=== PATIENT | female | born 1985 | race Two or more races ===

== ENCOUNTER 2021-10-05 20:45 | Emergency (ER) | payer MEDICAID, OTHER ==
[~2021-10-05] VITALS: Ht 149.9 cm; Wt 67.6 kg
[2021-10-05 22:31] LABS: Albumin 3.6 g/dL (3.4-5.0); BUN/Creatinine Ratio 17.9; Potassium 3.2 mmol/L (3.5-5.1)
[2021-10-05 22:35] LABS: Bilirubin, Total 0.4 mg/dL (0.2-1.0); Total Protein 8.9 g/dL (6.4-8.2)
[2021-10-05 22:46] LABS: Basophils # (auto) 0.2 10 ^3/uL (0-0.2); Basophils % (auto) 1.9 % (0.0-2.0); Eosinophils # (auto) 0 10 ^3/uL (0-0.8); Eosinophils % (auto) 0.3 % (0.0-7.0); Hematocrit 27.2 % (36.0-46.0); Hemoglobin 8.1 g/dL (12.2-16.2); Lymphocytes # (auto) 1.7 10 ^3/uL (0.4-5.4); Lymphocytes % (auto) 20.8 % (10.0-50.0); Mean Corpuscular Hemoglobin 17.3 pg (28.0-32.0); Mean Corpuscular Hgb Conc. 29.7 g/dL (32.0-36.0); Mean Corpuscular Volume 58.2 fL (80.0-100.0); Monocytes # (auto) 1.1 10 ^3/uL (0-1.3); Monocytes % (auto) 13.1 % (0.0-12.0); Neutrophils # (auto) 5.3 10 ^3/uL (1.6-8.6); Neutrophils % (auto) 63.9 % (37.0-80.0); Nucleated Red Blood Cells % 0.1 %; Red Blood Cells 4.67 10^6/uL (4.0-5.20); Red Cell Distribution Width 18.3 % (11.8-14.3); White Blood Cell 8.3 10^3/uL (4.4-10.8)
[2021-10-05] MEDS ORDERED: ONDA-144 PO (23:04)
[2021-10-05 23:30] VITALS: BP 115/73
== END 2021-10-06 00:15 | disposition home or self-care (01) ==
LOC: ER 20:45
DX: A08.4 Viral intestinal infection, unspecified (principal)
CPT/HCPCS: 36415; 80053; 85025

== ENCOUNTER 2022-04-09 02:18 | Emergency (ER) | payer MEDICAID ==
[~2022-04-09] VITALS: Ht 149.9 cm; Wt 73.0 kg
[~2022-04-09 02:18] MED LIST: ONDA-144 PO
[2022-04-09 05:59] VITALS: BP 116/67
== END 2022-04-09 07:05 | disposition left against medical advice (07) ==
LOC: ER 02:20
DX: J02.9 Acute pharyngitis, unspecified (principal); Z53.21 Procedure and treatment not carried out due to patient leaving prior to being seen by health care provider
CPT/HCPCS: 71045

== ENCOUNTER 2024-05-13 22:11 | Inpatient (IN) | payer MEDICAID ==
[~2024-05-13] VITALS: Ht 149.9 cm; Wt 68.6 kg
[2024-05-13] MEDS: ONDANSETRON HCL 4 MG/2 ML VIAL IV ONE (22:30)
[2024-05-13] MEDS: MORPHINE SULFATE 4 MG/ML SYR/VIAL IV ONE (22:30)
--- NOTE | 2024-05-13 22:33 | ED.PDOC ---
GI ASSESSMENT HPI Comments 39-year-old female who came to ER for abdominal pain. Patient denies any medical problems. Denies any history of abdominal surgeries. States for the past few hours she has been having constant epigastric abdominal pain, associated with nausea, and 3 episodes of vomiting. Patient also has loss of appetite. Patient appears very pale and weak at this time. Patient states she is currently on her menstrual period x 4 days Chief Complaint: Abdominal Pain Time Seen by MD: 22:33 Reviewed Notes: Nurses Notes Allergies: Coded Allergies: NO KNOWN ALLERGIES (Unverified , 05/13/24) Home Meds Active Scripts Ondansetron (Zofran) 4 Mg Tab, 4 MG PO Q8HP PRN, #15 MG Prov:MARTI SAUCEDA MD 10/05/21 Information Source: Patient Mode of Arrival: Ambulatory Timing: Hours Duration: Since onset Prehospital treatment: None Quality: Cramping, Sharp Vomitus: Watery Stool: Normal Severity: Moderate Recent: None Recent Hx of: None Pain Location: Epigastric Modifying Factors: Nothing Associated sign and symptoms: Nausea, Vomiting, Abdominal Pain, Anorexia Past Medical History PAST MEDICAL HISTORY: Denies Surgical History: Denies all surgeries 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 History: Uterine Fibroids Family History Family History: Reviewed,noncontributory to illness Social History Smoker: Non-Smoker Alcohol: Denies ETOH Use Drugs: Denies Drug Use Lives In: Home Constitutional: denies: chills, diaphoresis, fatigue, fever, malaise, sweats, weakness, others EENTM: denies: blurred vision, double vision, ear bleeding, ear discharge, ear drainage, ear pain, ear ringing, eye pain, eye redness, hearing loss, mouth pain, mouth swelling, nasal discharge, nose bleeding, nose congestion, nose pain, photophobia, tearing, throat pain, throat swelling, voice changes, others Respiratory: denies: cough, hemoptysis, orthopnea, SOB at rest, shortness of breath, SOB with excertion, stridor, wheezing, others Cardiovascular: denies: chest pain, dizzy spells, diaphoresis, Dyspnea on exertion, edema, irregular heart beat, left arm pain, lightheadedness, palpitations, PND, syncope, others Gastrointestinal: reports: abdominal pain, nausea, poor appetite, vomiting; denies: abdomen distended, blood streaked bowels, constipated, diarrhea, dysphagia, difficulty swallowing, hematemesis, melena, poor fluid intake, rectal bleeding, rectal pain, others Genitourinary: denies: abnormal vagina bleeding, burning, dyspareunia, dysuria, flank pain, frequency, hematuria, incontinence, pain, , vagina discharge, urgency, others Neurological: denies: dizziness, fainting, headache, left sided numbness, left sided weakness, numbness, paresthesia, pre-existing deficit, right sided numbness, right sided weakness, seizure, speech problems, tingling, tremors, weakness, others Musculoskeletal: denies: back pain, gout, joint pain, joint swelling, muscle pain, muscle stiffness, neck pain, others Integumetry: denies: bruises, change in color, change in hair/nails, dryness, laceration, lesions, lumps, rash, wounds, others Allergic/Immunocompromised: denies: Difficulty Healing, Frequent Infections, Hives, Itching, others Hematologic/Lymphatic: denies: anemia, blood clots, easy bleeding, easy bruising, swollen glands, others Endocrine: denies: excessive hunger, excessive sweating, excessive thirst, excessive urination, flushing, intolerance to cold, intolerance to heat, unexplained weight gain, unexplained weight loss, others Psychiatric: denies: anxiety, bipolar disorder, depression, hopeless, panic disorder, schizophrenia, sleepless, suicidal, others Physical Exam General Appearance: No Apparent Distress, Normal HEENT: Normal ENT Inspection, Pharynx Normal, TMs Normal Neck: Full Range of Motion, Non-Tender, Normal, Normal Inspection Respiratory: Chest Non-Tender, Lungs Clear, No Accessory Muscle Use, No Respiratory Distress, Normal Breath Sounds Cardiovascular: No Edema, No JVD, No Murmur, No Gallop, Normal Peripheral Pulses, Regular Rate/Rhythm Breast Exam: Deferred Gastrointestinal: Epigastric, No Organomegaly, No Pulsatile Mass, Normal Bowel Sounds, Soft, Tenderness Genitalia: Deferred Pelvic: Deferred Rectal: Deferred Extremities: No calf tenderness, Normal capillary refill, Normal inspection, Normal range of motion, Non-tender, No pedal edema Musculoskeletal : Apperance: Normal Neurologic: Alert, 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 Was a procedure done?: No GI differential Dx Differential Diagnosis: Cholecystitis, Diverticular disease, Gastritis/PUD, Gastroenteritis, Pancreatitis, UTI, Urolithiasis, Dehydration X-Ray, Labs, Meds, VS Vital Signs Date Time Temp Pulse Resp B/P (MAP) Pulse Ox O2 Delivery O2 Flow Rate FiO2 05/13/24 23:15 98.8 120 18 92/52 (65) 96 98.8 05/13/24 23:15 120 18 97 Nasal Cannula* 2 28 05/13/24 22:17 98.8 114 16 105/53 (70) 100 Lab Test 05/13/24 23:19 05/13/24 22:35 Range/Units Lactic Acid Level 3.0 *H 0.4-2.0 mmol/L White Blood Count 30.4 *H 4.4-10.8 10^3/uL Red Blood Count 3.22 L 4.0-5.20 10^6/uL Hemoglobin 4.5 *L 12.2-16.2 g/dL Hematocrit 17.6 L 36.0-46.0 % Mean Corpuscular Volume 54.6 L 80.0-100.0 fL Mean Corpuscular Hemoglobin 13.9 L 28.0-32.0 pg Mean Corpuscular Hemoglobin Concent 25.5 L 32.0-36.0 g/dL Red Cell Distribution Width 21.1 H 11.8-14.3 % Platelet Count 231 140-450 10^3/uL Mean Platelet Volume 9.0 6.9-10.8 fL Neutrophils (%) (Auto) 37.0-80.0 % Lymphocytes (%) (Auto) 10.0-50.0 % Monocytes (%) (Auto) 0.0-12.0 % Basophils (%) (Auto) 0.0-2.0 % Neutrophils # (Auto) 1.6-8.6 10 ^3/uL Lymphocytes # (Auto) 0.4-5.4 10 ^3/uL Monocytes # (Auto) 0-1.3 10 ^3/uL Differential Total Cells Counted 100.0 100 Neutrophils % (Manual) 84 H 37.0-80.0 Band Neutrophils % (Manual) 11 Lymphocytes % (Manual) 4 L 10.0-50.0 Monocytes % (Manual) 1 0-12 Eosinophils % (Manual) 0 0-7 Basophils % (Manual) 0 0.0-2.0 Metamyelocytes % (manual) 0 Myelocytes % (Manual) 0 Promyelocytes % (Manual) 0 Blast Cells % (Manual) 0 Reactive Lymphocytes 0 Platelet Estimate Adequate Giant Platelets Few Polychromasia Slight Hypochromasia (manual) Marked Microcytosis Moderate Stomatocytes Few Sodium Level 137 136-145 mmol/L Potassium Level 3.1 L 3.5-5.1 mmol/L Chloride Level 104 98-107 mmol/L Carbon Dioxide Level 23 20-31 mmol/L Anion Gap 10 5-15 Blood Urea Nitrogen 10 9-23 mg/dL Creatinine 0.90 0.550-1.02 mg/dL Glomerular Filtration Rate Calc 84 >90 mL/min BUN/Creatinine Ratio 11.1 10.0-20.0 Serum Glucose 139 H 74-106 mg/dL Hemoglobin A1c 4.7 <5.7 % A1C Calcium Level 9.0 8.7-10.4 mg/dL Total Bilirubin 1.3 H 0.2-1.0 mg/dL Aspartate Amino Transferase (AST) 9 L 13-40 U/L Alanine Aminotransferase (ALT) < 9 7-40 U/L Alkaline Phosphatase 81 46-116 U/L Total Protein 7.4 5.7-8.2 g/dL Albumin 4.2 3.2-4.8 g/dL Lipase 23 12-53 U/L Beta HCG, Quantitative 0.8 L 1.5-4.2 mIU/mL Current Medications Medications (Trade) Dose Ordered Sig/Nishant Route Start Time Stop Time Status Last Admin Sodium Chloride 1,000 ml @ 1,000 mls/hr Q1H ONCE IV 05/13/24 22:30 05/13/24 23:29 DC 05/13/24 22:52 Cefepime HCl 50 ml @ 12.5 mls/hr ONCE ONCE IV 05/13/24 23:15 05/14/24 03:14 05/13/24 23:15 Vancomycin HCl 200 ml @ 200 mls/hr ONCE ONCE IV 05/13/24 23:15 05/14/24 00:14 DC 05/13/24 23:45 Pantoprazole Sodium (Protonix) 40 mg ONCE ONCE IV 05/13/24 23:30 05/13/24 23:35 DC 05/13/24 23:57 Potassium Chloride (Klor-Con Tablet) 40 meq ONCE ONCE PO 05/13/24 23:30 05/13/24 23:35 DC 05/13/24 23:57 Sodium Chloride 1,000 ml @ 60 mls/hr [id number] IV 05/13/24 23:30 05/13/24 23:56 Time of 1ST Reevaluation: 22:29 Reevaluation 1ST: Unchanged Patient Education/Counseling: Diagnosis, Treatment Family Education/Counseling: No Family Present Departure 1 Departure Time of Disposition: 01:23 (Patient with concern for small bowel obstruction, malignancy, fibroids, infection. Treat patient with blood antibiotics fluids and admit) Impression: Primary Impression: Small bowel obstruction Additional Impressions: Symptomatic anemia Uterine mass Projectile vomiting with nausea Disposition: ADMITTED INPATIENT Admit to: Med Surg Condition: Guarded Critical Care Note Critical Care Time?: Yes Critical care comment: Intractable abdominal pain Authorized and Performed by: Jose D Gramajo MD Total critical care time: Approximately 38 minutes Due to a high probability of clinically significant, life threatening deterioration, the patient required my highest level of preparedness to intervene emergently and I personally spent this critical care time directly and personally managing the patient. This critical care time included obtaining a history; examining the patient; pulse oximetry; ordering and review of studies; arranging urgent treatment with development of a management plan; evaluation of patient's response to treatment; frequent reassessment; and, discussions with other providers. This critical care time was performed to assess and manage the high probability of imminent, life-threatening deterioration that could result in multi-organ failure. It was exclusive of separately billable procedures and treating other patients and teaching time. Please see my other sections and the rest of the note for further information on patient assessment and treatment. Stability Stability form required: No Heart Score Heart Score: Heart Score Response (Comments) Value History N/A 0 EKG N/A 0 Age N/A 0 Risk Factors N/A 0 Troponin N/A 0 Total 0 I personally scribed for JOSE D GRAMAJO MD ([email or web address]) on 05/13/24 at 22:33. Electronically submitted by Eze Walsh ([email or web address]). JOSE D GRAMAJO MD May 13, 2024 22:33
[2024-05-13 22:49] LABS: Hematocrit 17.6 % (36.0-46.0); Mean Corpuscular Hemoglobin 13.9 pg (28.0-32.0); Mean Corpuscular Hgb Conc. 25.5 g/dL (32.0-36.0); Mean Corpuscular Volume 54.6 fL (80.0-100.0); Platelet Count (auto) 231 10^3/uL (140-450); Red Blood Cells 3.22 10^6/uL (4.0-5.20)
[2024-05-13 22:51] LABS: Red Cell Distribution Width 21.1 % (11.8-14.3)
[2024-05-13] MEDS: IOHEXOL 300 MG/ML 100ML BOTTLE IJ ONE (22:52)
[2024-05-13] MEDS: SODIUM CHLORIDE 0.9% 1,000 ML IV ONE (22:52)
[2024-05-13 22:54] LABS: Hemoglobin 4.5 g/dL (12.2-16.2); White Blood Cell 30.4 10^3/uL (4.4-10.8)
[2024-05-13 22:55] LABS: Basophils % (manual) 0 (0.0-2.0); Blast Cells 0; Eosinophils % (manual) 0 (0-7); Metamyelocytes % 0; Myelocytes % 0; Promyelocytes % 0; Reactive Lymphocytes 0
[2024-05-13 23:00] LABS: Albumin 4.2 g/dL (3.2-4.8); Alkaline Phosphatase 81 U/L (46-116); Anion Gap 10 (5-15); Aspartate Aminotransferase 9 U/L (13-40); BUN/Creatinine Ratio 11.1 (10.0-20.0); Bilirubin, Total 1.3 mg/dL (0.2-1.0); Blood Urea Nitrogen 10 mg/dL (9-23); Carbon Dioxide 23 mmol/L (20-31); Chloride 104 mmol/L (98-107); Glucose 139 mg/dL (74-106); Lipase 23 U/L (12-53); Potassium 3.1 mmol/L (3.5-5.1); Sodium 137 mmol/L (136-145); Total Protein 7.4 g/dL (5.7-8.2)
[2024-05-13 23:01] LABS: Alanine Aminotransferase < 9 U/L (7-40)
[2024-05-13 23:15] VITALS: PULSE 120; RESP 18; O2SAT 97
[2024-05-13] MEDS: CEFEPIME 2GM/50ML NS 50 ML IV ONE (23:15)
[2024-05-13] MEDS ORDERED: ONDANSETRON HCL 4 MG/2 ML VIAL IV PRN (23:30)
[2024-05-13] MEDS ORDERED: DOCUSATE SOD 100 MG CAP PO PRN (23:30)
[2024-05-13] MEDS ORDERED: VANCOMYCIN PER PHARMACY 0 MG IV SCH (23:30)
[2024-05-13] MEDS: VANCOMYCIN 1GM/200ML PREMIX 200 ML IV ONE (23:45)
[2024-05-13] MEDS: SODIUM CHLORIDE 0.9% 1,000 ML IV SCH (23:56)
[2024-05-13] MEDS: POTASSIUM CHL 20 Meq TABLET PO ONE (23:57)
[2024-05-13] MEDS: PANTOPRAZOLE 40 MG/10 ML VIAL INJ IV ONE (23:57)
[2024-05-14] VITALS (19 sets, daily range): BP systolic 91–119; BP diastolic 42–71; PULSE 103–126; RESP 18–39; TEMP 97.9–100.3; O2SAT 92–100
--- NOTE | 2024-05-14 00:50 | DVH ---
Exam: CT CT AB PEL WITH IV CON ONLY History: ruq abdominal pain COMPARISON: None Technique: Multidetector spiral CT of the abdomen and pelvis was performed from lung bases to pubic s ymphysis. Intravenous contrast was administered during this examination. Portal venous imaging was obtained. Axial, coronal and sagittal multiplanar reformats were performed by the technologist on a separate workstation. Radiation Dose : 1. Abdomen/Pelvis: CTDIvol 12 mGy, DLP 609 mGy*cm. CONTRAST: Type of contrast: Omnipaque 300 Contrast injected: 100 ml Contrast ingested: None Findings: Lung Bases: Bibasilar nodular densities may reflect atelectasis or mild pneumonia. Normal heart size . No pleural or pericardial effusion. Liver: The liver is normal in size. No focal lesions. Normal hepatic vascular enhancement. Gallbladder and Biliary Tree: Unremarkable Spleen: Unremarkable Pancreas: The pancreas is normal in appearance without focal lesions or abnormal enhancement. Adrenal Glands: Unremarkable Kidneys: No hydronephrosis. Bladder: Unremarkable Bowel: The stomach is grossly normal in appearance. Multiple inflamed and abnormally dilated loops of small bowel are seen throughout the abdomen with probable transition point in the right lower quadra nt, suspicious for small bowel obstruction. Extensive phlegmon is seen in the right lower quadrant wi th small amount of right pelvic ascites. Normal appendix is visualized in the right lower quadrant wi thout findings of appendicitis. Ascites: Trace pelvic ascites Lymphadenopathy: No mesenteric, retroperitoneal or periportal lymphadenopathy. Abdominal Wall and Mesentery: Unremarkable. Vasculature: The visualized abdominal aorta is normal in size and caliber. Abdominal and pelvic vess els demonstrate normal enhancement. Pelvic Organs: Uterus is intact. Large masslike lesion is seen at the uterine fundus measuring up to 6.8 cm, possibly a fibroid. Musculoskeletal: No aggressive focal bony lesions, acute fractures or dislocation. IMPRESSION: 1. Multiple inflamed and abnormally dilated loops of small-bowel are seen with probable transition po int in the right lower quadrant, suspicious for small bowel obstruction. Extensive phlegmon is seen i n the right lower quadrant suggestive of severe inflammatory process. 2. Trace pelvic ascites is seen which is localized in the right lower quadrant. 3. Large masslike lesion is seen in the right uterine fundus measuring up to 6.8 cm, possibly a fibro id. Recommend correlation with dedicated pelvic ultrasound. 4. Normal appendix. Radiation optimization: All CT scans at this facility use at least one of these dose optimization tiffanie hniques: automated exposure control mA and/or kV adjustment per patient size (includes targeted exam s where dose is matched to clinical indication) or iterative reconstruction.
--- NOTE | 2024-05-14 00:51 | DVHHP2 ---
History of Present Illness Reason for Visit: Severe anemia History of Present Illness The patient is a 39-year-old female with past medical history of uterine fibroids who presented to [facility] ED with complaint of acute abdominal pain. Patient reports symptoms progressively get worse with constant epigastric abdominal pain, associated with nausea, three episodes of vomiting, loss of appetite, generalized weakness, very skin pale, getting worse today that prompted this visit. Patient states she is currently on her menstrual period x 4 days. The patient was seen and evaluated in the ED, laboratory data shows WBC 30.4, hemoglobin 4.5, hematocrit 17.6, platelets 231, sodium 137, potassium 3.1, BUN 10, creatinine 0.90, glucose 139, lactic acid 3.0 trending down to 2.7, total bilirubin 1.3, blood pressure 92/54, heart rate 120, temperature 98.8 F, O2 saturation 96% on room air. Abdomen/pelvis CT revealing multiple inflamed and abnormally dilated loops of small bowel seen with probable transition point in the right lower quadrant, suspicious for small bowel obstruction; extensive phlegmon is seen in the right lower quadrant suggestive of severe inflammatory process; trace pelvic ascites is seen which is localized in the right lower quadrant; large masslike lesion is seen in the right uterine fundus measuring up to 6.8 cm. Patient was started on IV antibiotic regimen vancomycin, given 2 units of PRBC, please see medication orders section in the computer. On my assessment, patient denied chest pain, no headache, no dizziness, no palpitations, no loss of consciousness, no shortness of breath, no nausea, no vomiting at this moment, no fever, no chills. Patient was admitted for further evaluation and medical management. Past Medical History Uterine Fibroids Past Surgical History Denies all surgeries Family History Reviewed, noncontributory to the management of this case. Past Social History The patient lives at home, denies smoking, alcohol or illicit drugs abuse. Review of Systems Constitutional: Yes: Weakness; No: Fever, Chills, Sweats, Malaise, Other Eyes: No: Pain, Vision change, Conjunctivae inflammation, Eyelid inflammation, Other, Redness ENT: No: Ear pain, Ear discharge, Nose pain, Nose discharge, Nose congestion, Mouth pain, Mouth swelling, Throat pain, Throat swelling, Other Respiratory: No: Cough, Dry, Shortness of breath, SOB with excertion, Wheezing, Hemoptysis, Pleuritic Pain, Sputum, Wheezing, Other Cardiovascular: No: Chest Pain, Palpitations, Orthopnea, Paroxysmal Noc. Dyspnea, Edema, Lt Headedness, Other Gastrointestinal: Nausea, Vomiting, Abdominal Pain, Other (Poor appetite); No: Diarrhea, Constipation, Melena, Hematochezia Genitourinary: No Dysuria, No Frequency, No Incontinence, No Hematuria, No Retention, No Other Musculoskeletal: No: other, neck pain, shoulder pain, arm pain, back pain, hand pain, leg pain, foot pain Skin: No: Rash, Lesions, Jaundice, Bruising, Other Neurological: No: Weakness, Numbness, Incoordination, Change in speech, Confusion, Seizures, Other Allergies: Coded Allergies: NO KNOWN ALLERGIES (Unverified , 05/13/24) Medications Current Medications Medications Dose Ordered Sig/Nishant Route Start Time Stop Time Status Last Admin Dose Admin Pantoprazole Sodium 40 mg DAILY IV 05/14/24 10:00 Vancomycin HCl 0 ml @ 0 mls/hr UD IV 05/13/24 23:30 UNV Ceftriaxone Sodium 50 ml @ 100 mls/hr DAILY@09 IV 05/14/24 09:00 Sodium Chloride 1,000 ml @ 60 mls/hr [id number] IV 05/13/24 23:30 05/13/24 23:56 60 MLS/HR Acetaminophen/ Hydrocodone Bitart 1 tab Q4HP PRN PO 05/13/24 23:30 Ondansetron HCl 4 mg Q4HP PRN IV 05/13/24 23:30 Docusate Sodium 100 mg BIDPRN PRN PO 05/13/24 23:30 Acetaminophen 650 mg Q6HP PRN PO 05/13/24 23:30 Morphine Sulfate 2 mg Q4HPRN PRN IV 05/13/24 23:30 Exam Vital Signs Vital Signs Date Time Temp Pulse Resp B/P (MAP) Pulse Ox O2 Delivery O2 Flow Rate FiO2 05/13/24 23:15 98.8 120 18 92/52 (65) 96 98.8 05/13/24 23:15 Nasal Cannula* 2 28 General Appearance: Alert, Oriented X3, Cooperative, No acute distress HEENT: Atraumatic, PERRLA, EOMI, Mucous membr. moist/pink Respiratory: Clear to auscultation, Normal air movement Cardiovascular: Regular rate, Normal S1, Normal S2, No murmurs Abdominal: Normal bowel sounds, Soft, No hepatospenomegaly, No masses, Other (Reports tenderness) Extremities: No clubbing, No cyanosis, No edema, Normal pulses, No tenderness/swelling Skin: No rashes, No breakdown, No significant lesion Neuro: Normal speech, Normal tone, Sensation intact, Cranial nerves 3-12 NL, Reflexes 2+, Other (Generalized weakness) Psych/Mental Status: Mental status NL, Mood NL Labs/Xrays Labs Test 05/13/24 23:19 05/13/24 22:35 Range/Units Lactic Acid Level 3.0 *H 0.4-2.0 mmol/L White Blood Count 30.4 *H 4.4-10.8 10^3/uL Red Blood Count 3.22 L 4.0-5.20 10^6/uL Hemoglobin 4.5 *L 12.2-16.2 g/dL Hematocrit 17.6 L 36.0-46.0 % Mean Corpuscular Volume 54.6 L 80.0-100.0 fL Mean Corpuscular Hemoglobin 13.9 L 28.0-32.0 pg Mean Corpuscular Hemoglobin Concent 25.5 L 32.0-36.0 g/dL Red Cell Distribution Width 21.1 H 11.8-14.3 % Platelet Count 231 140-450 10^3/uL Mean Platelet Volume 9.0 6.9-10.8 fL Neutrophils (%) (Auto) 37.0-80.0 % Lymphocytes (%) (Auto) 10.0-50.0 % Monocytes (%) (Auto) 0.0-12.0 % Basophils (%) (Auto) 0.0-2.0 % Neutrophils # (Auto) 1.6-8.6 10 ^3/uL Lymphocytes # (Auto) 0.4-5.4 10 ^3/uL Monocytes # (Auto) 0-1.3 10 ^3/uL Sodium Level 137 136-145 mmol/L Potassium Level 3.1 L 3.5-5.1 mmol/L Chloride Level 104 98-107 mmol/L Carbon Dioxide Level 23 20-31 mmol/L Anion Gap 10 5-15 Blood Urea Nitrogen 10 9-23 mg/dL Creatinine 0.90 0.550-1.02 mg/dL Glomerular Filtration Rate Calc 84 >90 mL/min BUN/Creatinine Ratio 11.1 10.0-20.0 Serum Glucose 139 H 74-106 mg/dL Calcium Level 9.0 8.7-10.4 mg/dL Total Bilirubin 1.3 H 0.2-1.0 mg/dL Aspartate Amino Transferase (AST) 9 L 13-40 U/L Alanine Aminotransferase (ALT) < 9 7-40 U/L Alkaline Phosphatase 81 46-116 U/L Total Protein 7.4 5.7-8.2 g/dL Albumin 4.2 3.2-4.8 g/dL Lipase 23 12-53 U/L Beta HCG, Quantitative 0.8 L 1.5-4.2 mIU/mL PATIENT: DEMETRI YUAN ACCT: [id number] UNIT: [id number] : 1985 LOC: ER ROOM / BED: / AGE / SEX: 39 / F ADM STATUS: REG ER SERVICE 20 ORDERING PHYSICIAN: JOSE D REYES MD PROCEDURE(s): ABPLIV - CT AB PEL WITH IV CON ONLY REASON: ruq abdominal pain ORDER NUMBER(s): [id number], ACCESSION NUMBER(s): [id number] Exam: CT CT AB PEL WITH IV CON ONLY History: ruq abdominal pain COMPARISON: None Technique: Multidetector spiral CT of the abdomen and pelvis was performed from lung bases to pubic symphysis. Intravenous contrast was administered during this examination. Portal venous imaging was obtained. Axial, coronal and sagittal multiplanar reformats were performed by the technologist on a separate workstation. Radiation Dose : 1. Abdomen/Pelvis: CTDIvol 12 mGy, DLP 609 mGy*cm. CONTRAST: Type of contrast: Omnipaque 300 Contrast injected: 100 ml Contrast ingested: None Findings: Lung Bases: Bibasilar nodular densities may reflect atelectasis or mild pneumonia. Normal heart size. No pleural or pericardial effusion. Liver: The liver is normal in size. No focal lesions. Normal hepatic vascular enhancement. Gallbladder and Biliary Tree: Unremarkable Spleen: Unremarkable Pancreas: The pancreas is normal in appearance without focal lesions or abnormal enhancement. Adrenal Glands: Unremarkable Kidneys: No hydronephrosis. Bladder: Unremarkable Bowel: The stomach is grossly normal in appearance. Multiple inflamed and abnormally dilated loops of small bowel are seen throughout the abdomen with probable transition point in the right lower quadrant, suspicious for small bowel obstruction. Extensive phlegmon is seen in the right lower quadrant with s mall amount of right pelvic ascites. Normal appendix is visualized in the right lower quadrant without findings of appendicitis. Ascites: Trace pelvic ascites Lymphadenopathy: No mesenteric, retroperitoneal or periportal lymphadenopathy. Abdominal Wall and Mesentery: Unremarkable. Vasculature: The visualized abdominal aorta is normal in size and caliber. Abdominal and pelvic vessels demonstrate normal enhancement. Pelvic Organs: Uterus is intact. Large masslike lesion is seen at the uterine fundus measuring up to 6.8 cm, possibly a fibroid. Musculoskeletal: No aggressive focal bony lesions, acute fractures or dislocation. IMPRESSION: 1. Multiple inflamed and abnormally dilated loops of small-bowel are seen with probable transition point in the right lower quadrant, suspicious for small bowel obstruction. Extensive phlegmon is seen in the right lower quadrant suggestive of severe inflammatory process. 2. Trace pelvic ascites is seen which is localized in the right lower quadrant. 3. Large masslike lesion is seen in the right uterine fundus measuring up to 6.8 cm, possibly a fibroid. Recommend correlation with dedicated pelvic ultrasound. 4. Normal appendix. Assessment/Plan Assessment/Plan Acute abdominal pain Small bowel obstruction Symptomatic anemia Uterine mass Generalized weakness Sepsis, unspecified organism Projectile vomiting with nausea Plan 1. Admit to telemetry unit 2. Breathing treatment 3. Pain control management 4. IV antibiotic management 5. Management of fluids and electrolytes 6. Consultation for surgical/GI 7. Diagnostic test abdomen/pelvis CT 8. DVT prophylaxis-on SCDs 9. Repeat labs CBC, CMP in a.m. 10. Home medication reviewed and reconciled 11. Continue with current medical management 12. Treatment plan discussed with patient and RN. Patient verbalized understanding. Plan discussed with: Patient, Other (RN) My Orders Orders - LISBETH TELLO DNP Procedure Category Date Status Time Pantoprazole PHA 05/14/24 In Process (Protonix) 10:00 Vancomycin Per PHA 05/13/24 Pending Pharmacy 23:30 Ceftriaxone 1gm/50ml PHA 05/14/24 In Process D5w (Rocephin) 09:00 * Hematology/Oncology CONS 05/13/24 Transmitted Consult 23:24 Allergies CHU 05/13/24 In Process 23:24 Code Status CODE 05/13/24 Transmitted 23:24 Sodium Chloride 0.9% PHA 05/13/24 In Process 23:30 Oxygen Per Hour RT 05/13/24 Transmitted 23:24 Hydrocodone-Acet PHA 05/13/24 In Process 5/325mg Tab ([place] 23:30 Ondansetron Hcl PHA 05/13/24 In Process (Zofran) 23:30 Docusate Sodium PHA 05/13/24 In Process Capsule (Colace 23:30 Fall Risk Precautions CHU 05/13/[address] 23:24 Complete Blood Count LAB 05/14/24 Logged 04:00 Comprehensive LAB 05/14/24 Logged Metabolic Panel 04:00 Cardiac DIET 05/14/24 Transmitted Diet-2gna,Lofat,Lochol Breakfast Condition: Serious CHU 05/13/24 In Process 23:24 Acetaminophen Tablet PHA 05/13/24 In Process (Tylenol Tablet) 23:30 Maintain Bed Rest CHU 05/13/24 In Process 23:24 Morphine Sulfate PHA 05/13/24 In Process Injection 23:30 Sequential CHU 05/13/24 In Process Compression Device Hemoglobin A1c LAB 05/13/24 In Process 23:29 Admit ADMIT 05/14/24 Verified 00:49 Nitroglycerin [facility] 05/14/24 Verified Sublingual (Ntrostat 01:00 Morphine Sulfate PHA 05/14/24 Verified Injection 01:00 Notify Of Changes [facility] 05/14/24 Verified From Base 00:49 Boat Tester For [facility] 05/14/24 Verified 24 Hours 00:49 Emergency Dysrhythmia [facility] 05/14/24 Verified Protocol 00:49 Rhythm Strips Once [facility] 05/14/24 Verified Every Shift 00:49 Oxygen By Nasal RT 05/14/24 Verified Cannula 00:49 Problem List: (1) Acute abdominal pain (2) Small bowel obstruction (3) Generalized weakness (4) Sepsis, unspecified organism (5) Uterine mass (6) Symptomatic anemia (7) Projectile vomiting with nausea Date of Service: May 14, 2024 Billing Provider: LISBETH TELLO DNP Common Visit Codes: [id number] INP/OBS CARE (HIGH) LISBETH TELLO DNP May 14, 2024 00:51
[2024-05-14 00:53] LABS: Band Neutrophils % (manual) 11; Hypochromia Marked; Lymphocytes % (manual) 4 (10.0-50.0); Monocytes % (manual) 1 (0-12); Polychromasia Slight; Stomatocytes Few
[2024-05-14 00:54] LABS: Giant Platelets Few; Platelet Estimate Adequate
[2024-05-14] MEDS ORDERED: NITROGLYCERIN 0.4 MG SL TAB SL PRN (01:00)
[2024-05-14] MEDS ORDERED: MORPHINE SULFATE INJ 2 MG/ml SYRG IV PRN (01:00)
[2024-05-14 02:04] LABS: Urine Bacteria FEW /hpf (None Seen); Urine Blood 3+ /uL (Negative); Urine Clarity Clear (Clear); Urine Color Colorless (Yellow); Urine Hyaline Cast MOD /lpf (0 - 2); Urine Mucus FEW (None Seen); Urine Protein, UAD 1+ (Negative); Urine Specific Gravity 1.049 (1.001-1.035); Urine Urobilinogen Normal (Negative); Urine WBC 73 /hpf (0 - 5); Urine pH 5.5 (5.0-9.0)
[2024-05-14] MEDS: HYDROcodone-ACET 5/325MG TAB PO PRN (02:20)
[2024-05-14] MEDS: metroNIDAZOLE 500MG/100ML 100 ML IV SCH (06:00)
[2024-05-14 07:49] LABS: Albumin 3.3 g/dL (3.2-4.8); Alkaline Phosphatase 66 U/L (46-116); Anion Gap 11 (5-15); Aspartate Aminotransferase 9 U/L (13-40); Blood Urea Nitrogen 11 mg/dL (9-23); Calcium 7.8 mg/dL (8.7-10.4); Carbon Dioxide 20 mmol/L (20-31); Chloride 111 mmol/L (98-107); Glucose 122 mg/dL (74-106); Potassium 3.3 mmol/L (3.5-5.1); Sodium 142 mmol/L (136-145)
[2024-05-14 07:50] LABS: Bilirubin, Total 1.3 mg/dL (0.2-1.0); Hematocrit 23.4 % (36.0-46.0); Mean Corpuscular Hemoglobin 18.7 pg (28.0-32.0); Mean Corpuscular Hgb Conc. 28.6 g/dL (32.0-36.0); Mean Corpuscular Volume 65.4 fL (80.0-100.0); Platelet Count (auto) 182 10^3/uL (140-450); Red Blood Cells 3.59 10^6/uL (4.0-5.20); Total Protein 6.1 g/dL (5.7-8.2); White Blood Cell 26.9 10^3/uL (4.4-10.8)
[2024-05-14 07:53] LABS: Alanine Aminotransferase < 9 U/L (7-40); Red Cell Distribution Width 32.5 % (11.8-14.3)
[2024-05-14 07:55] LABS: Basophils % (manual) 0 (0.0-2.0); Blast Cells 0; Eosinophils % (manual) 0 (0-7); Hemoglobin 6.7 g/dL (12.2-16.2); Metamyelocytes % 0; Myelocytes % 0; Promyelocytes % 0; Reactive Lymphocytes 0
--- NOTE | 2024-05-14 08:28 | DVH ---
CHEST RADIOGRAPH Indication:ngt Technique: Single frontal view of the chest was obtained Comparison: CHEST PORTABLE on DOS: 04/09/22 FINDINGS: Lines and Tubes: An NG tube extends below the diaphragm into the left abdomen. The distal tip is not visualized. Lungs: Low lung volumes. No focal consolidation. Pleura: No effusion.No pneumothorax. Cardiomediastinal contours: The heart size in the upper limits of normal. Bones: No acute osseous abnormality. IMPRESSION: 1. Heart size is in the upper limits of normal. Low lung volumes. There is no focal lung consolidatio n. 2. NG tube extends below the diaphragm into the left abdomen. The distal tip not visualized. HS:Y
[2024-05-14] MEDS: POTASSIUM CHL 20 Meq TABLET PO ONE (10:09)
[2024-05-14] MEDS: cefTRIAXone 1GM/50ML D5W 50 ML IV SCH (10:09)
[2024-05-14] MEDS: PANTOPRAZOLE 40 MG/10 ML VIAL INJ IV SCH ×2 (10:10→21:24)
[2024-05-14 10:31] LABS: Anisocytosis Marked; Band Neutrophils % (manual) 16; Hypochromia Marked; Lymphocytes % (manual) 5 (10.0-50.0); Monocytes % (manual) 5 (0-12); Platelet Estimate Adequate
[2024-05-14] MEDS: VANCOMYCIN 1GM/200ML PREMIX 200 ML IV SCH (12:34)
[2024-05-14] MEDS ORDERED: IBUP200C14 PO (12:55)
--- NOTE | 2024-05-14 15:40 | DVHINCON2 ---
Date of service: May 14, 2024 Family History: Diabetes mellitus G8 MOTHER Allergies: Coded Allergies: NO KNOWN ALLERGIES (Unverified , 05/13/24) Home Meds Reported Medications Ibuprofen (Advil) 200 Mg Cap, 200 MG PO Q6HP PRN for PAIN SCALE 1 THRU 6, CAP 05/14/24 Current Medications Current Medications Medications (Trade) Dose Ordered Sig/Nishant Route PRN Reason Start Time Stop Time Status Last Admin Pantoprazole Sodium (Protonix) 40 mg DAILY IV 05/14/24 10:00 05/14/24 10:10 Vancomycin HCl 0 ml @ 0 mls/hr UD IV 05/13/24 23:30 Ceftriaxone Sodium 50 ml @ 100 mls/hr DAILY@09 IV 05/14/24 09:00 05/14/24 10:09 Sodium Chloride 1,000 ml @ 60 mls/hr [id number] IV 05/13/24 23:30 05/13/24 23:56 Acetaminophen/ Hydrocodone Bitart ([place] 5/325MG Tab) 1 tab Q4HP PRN PO MODERATE PAIN (4-6 PAIN SCALE) 05/13/24 23:30 05/14/24 02:20 Ondansetron HCl (Zofran) 4 mg Q4HP PRN IV NAUSEA / VOMITING 05/13/24 23:30 Docusate Sodium (Colace Capsule) 100 mg BIDPRN PRN PO FOR CONSTIPATION 05/13/24 23:30 Acetaminophen (Tylenol Tablet) 650 mg Q6HP PRN PO PAIN SCALE 1-3 OR TEMP>100.4 05/13/24 23:30 Morphine Sulfate 2 mg Q4HPRN PRN IV SEVERE PAIN (7-10 PAIN SCALE) 05/13/24 23:30 Nitroglycerin (Ntrostat Sublingual) 0.4 mg Q5MINP PRN SL FOR CHEST PAIN 05/14/24 01:00 Morphine Sulfate 2 mg Q30M PRN IV FOR CHEST PAIN 05/14/24 01:00 Metronidazole 100 ml @ 100 mls/hr Q8HR IV 05/14/24 06:00 05/14/24 14:25 Vancomycin HCl 200 ml @ 200 mls/hr Q8H IV 05/14/24 10:00 05/14/24 12:34 Vital Signs Vital Signs Date Time Temp Pulse Resp B/P (MAP) Pulse Ox O2 Delivery O2 Flow Rate FiO2 05/14/24 13:00 98.1 114 18 103/69 (80) 100 98.1 05/14/24 11:06 Room Air* 0 21 Labs/Diagnostic Data Labs Test 05/14/24 07:21 05/14/24 01:47 05/14/24 01:07 05/13/24 22:35 Range/Units White Blood Count 26.9 H 4.4-10.8 10^3/uL Red Blood Count 3.59 L 4.0-5.20 10^6/uL Hemoglobin 6.7 #*L 12.2-16.2 g/dL Hematocrit 23.4 #L 36.0-46.0 % Mean Corpuscular Volume 65.4 #L 80.0-100.0 fL Mean Corpuscular Hemoglobin 18.7 L 28.0-32.0 pg Mean Corpuscular Hemoglobin Concent 28.6 L 32.0-36.0 g/dL Red Cell Distribution Width 32.5 H 11.8-14.3 % Platelet Count 182 140-450 10^3/uL Mean Platelet Volume 9.2 6.9-10.8 fL Neutrophils (%) (Auto) 37.0-80.0 % Lymphocytes (%) (Auto) 10.0-50.0 % Monocytes (%) (Auto) 0.0-12.0 % Basophils (%) (Auto) 0.0-2.0 % Neutrophils # (Auto) 1.6-8.6 10 ^3/uL Lymphocytes # (Auto) 0.4-5.4 10 ^3/uL Monocytes # (Auto) 0-1.3 10 ^3/uL Differential Total Cells Counted 100.0 100 Neutrophils % (Manual) 74 37.0-80.0 Band Neutrophils % (Manual) 16 Lymphocytes % (Manual) 5 L 10.0-50.0 Monocytes % (Manual) 5 0-12 Eosinophils % (Manual) 0 0-7 Basophils % (Manual) 0 0.0-2.0 Metamyelocytes % (manual) 0 Myelocytes % (Manual) 0 Promyelocytes % (Manual) 0 Blast Cells % (Manual) 0 Reactive Lymphocytes 0 Platelet Estimate Adequate Hypochromasia (manual) Marked Anisocytosis (manual) Marked Microcytosis Marked Sodium Level 142 # 136-145 mmol/L Potassium Level 3.3 L 3.5-5.1 mmol/L Chloride Level 111 H 98-107 mmol/L Carbon Dioxide Level 20 20-31 mmol/L Anion Gap 11 5-15 Blood Urea Nitrogen 11 9-23 mg/dL Creatinine 0.61 # 0.550-1.02 mg/dL Glomerular Filtration Rate Calc 118 >90 mL/min BUN/Creatinine Ratio 18.0 10.0-20.0 Serum Glucose 122 H 74-106 mg/dL Calcium Level 7.8 L 8.7-10.4 mg/dL Total Bilirubin 1.3 H 0.2-1.0 mg/dL Aspartate Amino Transferase (AST) 9 L 13-40 U/L Alanine Aminotransferase (ALT) < 9 7-40 U/L Alkaline Phosphatase 66 46-116 U/L Total Protein 6.1 5.7-8.2 g/dL Albumin 3.3 3.2-4.8 g/dL Urine Color Colorless Yellow Urine Clarity Clear Clear Urine pH 5.5 5.0-9.0 Urine Specific [place] 1.049 H 1.001-1.035 Urine Protein 1+ H Negative Urine Ketones Negative Negative Urine Blood 3+ H Negative /uL Urine Nitrite Negative Negative Urine Bilirubin Negative Negative Urine Urobilinogen Normal Negative mg/dL Urine Leukocyte Esterase 3+ Negative /uL Urine RBC 296 0 - 4 /hpf Urine WBC 73 0 - 5 /hpf Urine Squamous Epithelial Cells Few <5 /hpf Urine Bacteria Few H None Seen /hpf Urine Hyaline Casts Mod 0 - 2 /lpf Urine Mucus Few None Seen Urine Glucose Normal Normal mg/dL Lactic Acid Level 2.7 *H 0.4-2.0 mmol/L Giant Platelets Few Polychromasia Slight Stomatocytes Few Hemoglobin A1c 4.7 <5.7 % A1C Lipase 23 12-53 U/L Beta HCG, Quantitative 0.8 L 1.5-4.2 mIU/mL Assessment [id number] AFEBRILE VSS ABD SOFT RLQ TENDER CT SCAN POSSIBLE ENTERITIS CAUSING SBO BM+ ANEMIA NO ACTIVE GI BLEED MENSTRUAL BLEED MANAGE CLOSE OBSERVATION NPO NG TO LCS CONSIDER URGENT SURGERY BASED ON ONGOING EVAL Plan discussed with: Patient LLOYD CORDOVA MD May 14, 2024 15:40
[2024-05-14] MEDS ORDERED: SORE THROAT SPRAY 6OZ BOTTLE MT PRN (17:30)
--- NOTE | 2024-05-14 17:51 | DVHPN2 ---
Subjective Patient is still having pain, has NG tube inserted. Stomach pain and the NG tube insertion is also causing chest pain. Reviewed: H&P Changes from previous H/P or p: No Changes Eyes: No Pain, No Vision change, No Conjunctivae inflammation, No Eyelid inflammation, No Other, No Redness ENT: No Ear pain, No Ear discharge, No Nose pain, No Nose discharge, No Nose congestion, No Mouth pain, No Mouth swelling, No Throat pain, No Throat swelling, No Other Cardiovascular: No Chest Pain, No Palpitations, No Orthopnea, No Paroxysmal Noc. Dyspnea, No Edema, No Lt Headedness, No Other Respiratory: No Cough, No Dry, No Shortness of breath, No SOB with excertion, No Wheezing, No Hemoptysis, No Pleuritic Pain, No Sputum, No Other Gastrointestinal: Nausea, Vomiting, Abdominal Pain; No Diarrhea, No Constipation, No Melena, No Hematochezia; Other (Poor appetite) Genitourinary: No Dysuria, No Frequency, No Incontinence, No Hematuria, No Retention, No Other Musculoskeletal: No other, No neck pain, No shoulder pain, No arm pain, No back pain, No hand pain, No leg pain, No foot pain Skin: No Rash, No Lesions, No Jaundice, No Bruising, No Other Objective Vitals Vital Signs Date Time Temp Pulse Resp B/P (MAP) Pulse Ox O2 Delivery O2 Flow Rate FiO2 05/14/24 13:00 98.1 114 18 103/69 (80) 100 98.1 05/14/24 11:06 Room Air* 0 21 Intake/Output Intake and Output 05/14/24 07:00 Intake Total 3330.0 ml Output Total 0 ml Balance 3330.0 ml Intake Oral 0 ml IV Total 1830.0 ml Tube Feeding 0 ml Blood Product 1200 ml Other 300 ml Output Urine Total 0 ml Exam GEN: Healthy appearing, well-developed, patient is in moderate distress HEENT: NC/AT; dry mucous membranes. NG tube inserted CV: RRR, no m/r/g. Tachycardia, on tele sinus tachycardia LUNGS: , no w/r/c. Bibasilar rales ABD: Tender to palpation in epigastrium, no bowel sounds heard, no masses or organomegaly. EXT: skin Warm, well perfused. no rashes. No clubbing, cyanosis, or edema. NEURO: Ambulating with no limitations. No focal deficits. Medications Current Medications Medications Dose Ordered Sig/Nishant Route Start Time Stop Time Status Last Admin Dose Admin Vancomycin HCl 0 ml @ 0 mls/hr UD IV 05/13/24 23:30 Ceftriaxone Sodium 50 ml @ 100 mls/hr DAILY@09 IV 05/14/24 09:00 05/14/24 10:09 100 MLS/HR Sodium Chloride 1,000 ml @ 60 mls/hr [id number] IV 05/13/24 23:30 05/13/24 23:56 60 MLS/HR Acetaminophen/ Hydrocodone Bitart 1 tab Q4HP PRN PO 05/13/24 23:30 05/14/24 02:20 1 TAB Ondansetron HCl 4 mg Q4HP PRN IV 05/13/24 23:30 Docusate Sodium 100 mg BIDPRN PRN PO 05/13/24 23:30 Acetaminophen 650 mg Q6HP PRN PO 05/13/24 23:30 Morphine Sulfate 2 mg Q4HPRN PRN IV 05/13/24 23:30 Nitroglycerin 0.4 mg Q5MINP PRN SL 05/14/24 01:00 Morphine Sulfate 2 mg Q30M PRN IV 05/14/24 01:00 Metronidazole 100 ml @ 100 mls/hr Q8HR IV 05/14/24 06:00 05/14/24 14:25 100 MLS/HR Vancomycin HCl 200 ml @ 200 mls/hr Q8H IV 05/14/24 10:00 05/14/24 12:34 200 MLS/HR Pantoprazole Sodium 40 mg BID IV 05/14/24 22:00 UNV Phenol/Menthol 1 spr Q2HP PRN MT 05/14/24 17:30 UNV Saccharomyces Boulardii 250 mg DAILY PO 05/14/24 18:00 05/18/24 10:00 UNV Laboratory Results Laboratory Tests 05/14/24 07:21 Chemistry Test 05/13/24 22:35 05/14/24 07:21 Albumin 4.2 g/dL (3.2-4.8) 3.3 g/dL (3.2-4.8) Calcium Level 9.0 mg/dL (8.7-10.4) 7.8 mg/dL (8.7-10.4) L Total Protein 7.4 g/dL (5.7-8.2) 6.1 g/dL (5.7-8.2) Lipid panel Test 05/13/24 22:35 Lipase 23 U/L (12-53) LFT Test 05/13/24 22:35 05/14/24 07:21 Alanine Aminotransferase (ALT) < 9 U/L (7-40) < 9 U/L (7-40) Alkaline Phosphatase 81 U/L (46-116) 66 U/L (46-116) Aspartate Amino Transferase (AST) 9 U/L (13-40) L 9 U/L (13-40) L Total Bilirubin 1.3 mg/dL (0.2-1.0) H 1.3 mg/dL (0.2-1.0) H HgA1c, TSH Test 05/13/24 22:35 Hemoglobin A1c 4.7 % A1C (<5.7) Urinalysis Test 05/14/24 01:47 Urine Color Colorless (Yellow) Urine Clarity Clear (Clear) Urine pH 5.5 (5.0-9.0) Urine Specific [place] 1.049 (1.001-1.035) Urine Protein 1+ (Negative) H Urine Ketones Negative (Negative) Urine Blood 3+ /uL (Negative) H Urine Nitrite Negative (Negative) Urine Bilirubin Negative (Negative) Urine Urobilinogen Normal mg/dL (Negative) Urine Leukocyte Esterase 3+ /uL (Negative) Urine RBC 296 /hpf (0 - 4) Urine WBC 73 /hpf (0 - 5) Urine Squamous Epithelial Cells Few /hpf (<5) Urine Bacteria Few /hpf (None Seen) H Urine Hyaline Casts Mod /lpf (0 - 2) Urine Mucus Few (None Seen) Urine Glucose Normal mg/dL (Normal) Labs and/or images reviewed: Labs reviewed by me, Image(s) reviewed by me Assessment/Plan Assessment/Plan SBO - per CT - still ad pain. - NG tube in, will put on intermitteng suction - surg onboard and following shock - anemia vs sepsis (diarrhea/GI vs UTI) - broad abx - blood to keep hb>7 diarrhea leukocytosis sepsis septic shock lactic acidosis hypovolemia hypotension - pt been having diarrhea for a few days. BP low (not able to give morphine due to this, patient w abd pain continuing) - diarrhea possible infectious because no other sources(no dysuria, cough, neck stiff/pain). - test stool (cdiff, wbc, bact cx, O&P) - ctx/flagyl already started, need escalation, will do vanc/cefepime/flagyll now. uncertain if this is sepsis or hypovol shock - risk of [id number] worsening condition... no test available to test for this strain - should empiric start po vanc , florastor... but CANNOT , patient on SBO treatment (NGtube suction etc). - will give norco, avoid iv opiates bz low BP. will give toradol iv as needed (one time orders by hospitalist).. UTI - also ua dirty.. - ucx pend - already on ctx. (will escalation to vanc/cefepime/flagyll) anemia - no sources. - CT has uterine fibroids but she persists that no menorhaggia, only 1-2 pads used.. - anemia could be O157:H7. concern for hemolysis. Tbili is mild elevated.. - could be production issue - will get retic. and will need consult heme - will order hapto and LDH, smear. - gi bleed - ppi bid. diet - npo gi ppx - ppi bid dvt ppx - scd med Tele Plan discussed with: Patient My Orders Orders - KEVEN WATSON MD Procedure Category Date Status Time Pantoprazole PHA 05/14/24 Logged (Protonix) 22:00 Lidocaine 2% Viscous PHA 05/14/24 Logged (Xylocaine 2% [place] 17:30 Sore Throat [place] PHA 05/14/24 Logged (Chloraseptic) 17:30 Ketorolac Injection PHA 05/14/24 Logged (Toradol Injection) 17:30 Stool Wbc LAB 05/14/24 Logged 17:22 Stool Bacterial KESHA 05/14/24 Uncollected Culture 17:22 Ova & Parasite Exam KESHA 05/14/24 Uncollected 17:22 Florastor (S. PHA 05/14/24 Logged Boulardii) (Florastor) 18:00 Clostridium Difficile KESHA 05/14/24 Uncollected Toxin 17:25 Date of Service: May 14, 2024 Billing Provider: KEVEN WATSON MD Common Visit Codes: [id number] INP/OBS CARE(HIGH) KEVEN WATSON MD May 14, 2024 17:51
[2024-05-14] MEDS ORDERED: FLORASTOR (S. BOULARDII) 250 MG CAP PO SCH (18:00)
[2024-05-14] MEDS: LIDOCAINE VISCOUS 2% 15ML UD MT ONE (18:04)
[2024-05-14] MEDS: KETOROLAC TROMETH 30 MG/ML 1ML VIAL IV ONE (18:05)
[2024-05-14] MEDS: MORPHINE SULFATE INJ 2 MG/ml SYRG IV PRN (21:25)
[2024-05-14] MEDS: CEFEPIME 2GM/50ML NS 50 ML IV SCH (23:29)
[2024-05-14] MEDS: ACETAMINOPHEN 650 MG RECT SUPP PR PRN (23:29)
[2024-05-15] VITALS (11 sets, daily range): BP systolic 117–132; BP diastolic 64–83; PULSE 79–125; RESP 16–20; TEMP 98.1–101.5; O2SAT 92–98
--- NOTE | 2024-05-15 00:25 | DVHINCON2 ---
DATE OF CONSULTATION: 05/14/2024 HISTORY OF PRESENT ILLNESS: A 39 years old coming in with lower abdominal pain started yesterday. She also has anemia. She has menstrual bleeding and currently no nausea or vomiting. Her pain is slightly less. She also had a bowel movement yesterday and today is seemingly diarrhea. PAST MEDICAL HISTORY: No diabetes, hypertension. PAST SURGICAL HISTORY: Nothing significant. PHYSICAL EXAMINATION: VITAL SIGNS: Afebrile, stable signs. HEENT: With no evidence of pallor, cyanosis, or jaundice. NECK: Supple, nontender with no thyromegaly, lymphadenopathy. CHEST: Clear. LUNGS: Clear. HEART: Within normal limits. ABDOMEN: Soft. She is tender in the right lower quadrant and in the lower abdomen, but there is no rebound. EXTREMITIES: Unremarkable. NEUROLOGIC: Intact. CLINICAL IMPRESSION: Rule out regional ileitis and then causing a bowel obstruction. At this point, there is a possibility of resolving bowel obstruction and her white cell count has trended down. So, my clinical impression is that she was possibly having inflamed condition from a regional ileitis as per the CAT scan showing the phlegmon formation in the right lower quadrant as well and his white cell count trending down. Bowel activity happening. There is a possibility of resolution of the bowel obstruction but in the meantime, she needs to be managed conservatively, kept n.p.o., NG to low continuous suction and repeat CT scan of the abdomen and pelvis as indicated based upon ongoing evaluation to determine the need for surgery. MD KAREN Mora TID: [id number] RECEIPT: [id number] cc: Glynn Alexander DNP
[2024-05-15 05:53] LABS: Hemoglobin 8.3 g/dL (12.2-16.2)
[2024-05-15 05:55] LABS: Hematocrit 27.6 % (36.0-46.0); Mean Corpuscular Hemoglobin 20.6 pg (28.0-32.0); Mean Corpuscular Hgb Conc. 30.1 g/dL (32.0-36.0); Mean Corpuscular Volume 68.4 fL (80.0-100.0); Platelet Count (auto) 189 10^3/uL (140-450); Red Blood Cells 4.04 10^6/uL (4.0-5.20); Red Cell Distribution Width 32.9 % (11.8-14.3); White Blood Cell 28.7 10^3/uL (4.4-10.8)
[2024-05-15 06:07] LABS: Basophils % (manual) 0 (0.0-2.0); Blast Cells 0; Eosinophils % (manual) 0 (0-7); Metamyelocytes % 0; Myelocytes % 0; Promyelocytes % 0; Reactive Lymphocytes 0
[2024-05-15 06:08] LABS: Albumin 3.6 g/dL (3.2-4.8); Alkaline Phosphatase 107 U/L (46-116); Anion Gap 10 (5-15); Aspartate Aminotransferase 10 U/L (13-40); BUN/Creatinine Ratio 21.2 (10.0-20.0); Blood Urea Nitrogen 14 mg/dL (9-23); Calcium 8.8 mg/dL (8.7-10.4); Carbon Dioxide 21 mmol/L (20-31); Chloride 110 mmol/L (98-107); Glucose 121 mg/dL (74-106); Sodium 141 mmol/L (136-145)
[2024-05-15 06:09] LABS: Bilirubin, Total 1.5 mg/dL (0.2-1.0); Total Protein 6.7 g/dL (5.7-8.2)
[2024-05-15 06:12] LABS: Alanine Aminotransferase < 9 U/L (7-40)
[2024-05-15 08:04] LABS: Anisocytosis Marked; Hypochromia Marked; Platelet Estimate Adequate
[2024-05-15 08:06] LABS: Band Neutrophils % (manual) 15; Lymphocytes % (manual) 2 (10.0-50.0); Monocytes % (manual) 5 (0-12)
[2024-05-15] MEDS: LIDOCAINE VISCOUS 2% 15ML UD PO SCH (11:45)
[2024-05-15] MEDS ORDERED: LORazepam 2MG/ML-1ML VIAL IV PRN (11:45)
[2024-05-15] MEDS: GASTROGRAFIN 120 ML SOL ONE ×2 (12:17→12:20)
--- NOTE | 2024-05-15 14:48 | DVH ---
Procedure: XY SMALL BOWEL SERIES-W GASTROGRA Reason for study/Clinical History: eval for SBO resolution Comparison Study: None available at time of dictation. Technique: Single contrast small bowel series performed. FINDINGS/IMPRESSION: Initial customs patrol officer view of the abdomen and pelvis appears demonstrates no acute process. Contrast is identified within the colon by 45. This represents a normal small bowel transit time.
--- NOTE | 2024-05-15 16:01 | DVHPN2 ---
Progress Note Date Seen: May 15, 2024 Medical Necessity Reason Pt with a Central, PICC or Fol: No Objective vital signs Vital Sign Date Time Temp Pulse Resp B/P (MAP) Pulse Ox O2 Delivery O2 Flow Rate FiO2 05/15/24 13:36 103 20 117/76 05/15/24 09:00 100.2 96 100.2 05/15/24 07:30 Room Air* 0 21 Total Intake and Output 05/14/24 05/14/24 05/15/24 15:00 23:00 07:00 Intake Total 250 ml 1020 ml 500 ml Balance 250 ml 1020 ml 500 ml medications Current Medications Medications Dose Ordered Sig/Nishant Route Start Time Stop Time Status Last Admin Dose Admin Vancomycin HCl 0 ml @ 0 mls/hr UD IV 05/13/24 23:30 Sodium Chloride 1,000 ml @ 60 mls/hr [id number] IV 05/13/24 23:30 05/13/24 23:56 60 MLS/HR Acetaminophen/ Hydrocodone Bitart 1 tab Q4HP PRN PO 05/13/24 23:30 05/14/24 02:20 1 TAB Ondansetron HCl 4 mg Q4HP PRN IV 05/13/24 23:30 Docusate Sodium 100 mg BIDPRN PRN PO 05/13/24 23:30 Acetaminophen 650 mg Q6HP PRN PO 05/13/24 23:30 Morphine Sulfate 2 mg Q4HPRN PRN IV 05/13/24 23:30 05/15/24 13:36 2 MG Nitroglycerin 0.4 mg Q5MINP PRN SL 05/14/24 01:00 Morphine Sulfate 2 mg Q30M PRN IV 05/14/24 01:00 Metronidazole 100 ml @ 100 mls/hr Q8HR IV 05/14/24 06:00 05/15/24 05:09 100 MLS/HR Vancomycin HCl 200 ml @ 200 mls/hr Q8H IV 05/14/24 10:00 05/15/24 10:16 200 MLS/HR Pantoprazole Sodium 40 mg BID IV 05/14/24 22:00 05/15/24 10:16 40 MG Phenol/Menthol 1 spr Q2HP PRN [place] 05/14/24 17:30 Cefepime HCl 50 ml @ 12.5 mls/hr Q8HR IV 05/14/24 22:00 05/15/24 06:55 12.5 MLS/HR Acetaminophen 650 mg Q6HP PRN [place] 05/14/24 22:00 05/14/24 23:29 650 MG Lidocaine HCl 15 ml Q4H PO 05/15/24 11:45 05/15/24 17:00 Lorazepam 1 mg Q6HP PRN IV 05/15/24 11:45 Saccharomyces Boulardii 250 mg DAILY PO 05/15/24 16:00 laboratory and microbiology Laboratory Tests 05/15/24 04:56 Test 05/15/24 04:56 Range/Units Serum Glucose 121 H 74-106 mg/dL Microbiology Date/Time Source Procedure Growth Status 05/15/24 00:20 Stool Clostridium difficile Toxin Assay - Final Complete 05/13/24 23:19 Blood Blood Culture - Preliminary NO GROWTH AFTER 24 HOURS OF INCUBATION. Resulted Problem List/Assessment/Plan Problem List/Assessment/Plan AFEBRILE VSS ABD SOFT LESS TENDER BM + GASTROGRAFIN RESOLVING SBO WBC UP ILEITIS ONGOING CONTINUE CLOSE OBSERVATION DC NG KEEP NPO Plan discussed with: Patient CC Plasma Assessment Blood Product Administration S: [id number] LLOYD CORDOVA MD May 15, 2024 16:01
[2024-05-15] MEDS: FLORASTOR (S. BOULARDII) 250 MG CAP PO SCH (18:20)
[2024-05-15 21:45] LABS: Albumin 3.6 g/dL (3.2-4.8); Alkaline Phosphatase 90 U/L (46-116); Anion Gap 6 (5-15); Aspartate Aminotransferase 10 U/L (13-40); BUN/Creatinine Ratio 22.2 (10.0-20.0); Bilirubin, Total 1.1 mg/dL (0.2-1.0); Blood Urea Nitrogen 14 mg/dL (9-23); Calcium 8.6 mg/dL (8.7-10.4); Carbon Dioxide 22 mmol/L (20-31); Chloride 114 mmol/L (98-107); Glucose 147 mg/dL (74-106); Potassium 2.7 mmol/L (3.5-5.1); Sodium 142 mmol/L (136-145); Total Protein 6.5 g/dL (5.7-8.2)
[2024-05-15 21:46] LABS: Alanine Aminotransferase < 9 U/L (7-40)
[2024-05-15] MEDS: ACETAMINOPHEN 325 MG TAB PO PRN (22:16)
--- NOTE | 2024-05-15 22:40 | DVHPN2 ---
Subjective The patient is a 39-year-old female with past medical history of uterine fibroids who presented to [facility] ED with complaint of acute abdominal pain. Patient reports symptoms progressively get worse with constant epigastric abdominal pain, associated with nausea, three episodes of vomiting, loss of appetite, generalized weakness, very skin pale, getting worse today that prompted this visit. Patient states she is currently on her menstrual period x 4 days. The patient was seen and evaluated in the ED, laboratory data shows WBC 30.4, hemoglobin 4.5, hematocrit 17.6, platelets 231, sodium 137, potassium 3.1, BUN 10, creatinine 0.90, glucose 139, lactic acid 3.0 trending down to 2.7, total bilirubin 1.3, blood pressure 92/54, heart rate 120, temperature 98.8 F, O2 saturation 96% on room air. Abdomen/pelvis CT revealing multiple inflamed and abnormally dilated loops of small bowel seen with probable transition point in the right lower quadrant, suspicious for small bowel obstruction; extensive phlegmon is seen in the right lower quadrant suggestive of severe inflammatory process; trace pelvic ascites is seen which is localized in the right lower quadrant; large masslike lesion is seen in the right uterine fundus measuring up to 6.8 cm. Patient was started on IV antibiotic regimen vancomycin, given 2 units of PRBC, 05/14- Patient is still having pain, has NG tube inserted. Stomach pain and the NG tube insertion is also causing chest pain. - 05/15 - patient is having pain from NG tube, this is causing her chest pain. Abdominal pain has improved significantly. She continues to have fecal incontinence that is watery in consistency. She denies having a more fevers/chills. Small bowel series is done and transit time is adequate. NG tube is removed. Surgery consult following, would like to keep patient NPO. We will continue antibiotics and wait for stool studies to return. Reviewed: H&P Changes from previous H/P or p: No Changes General: Per HPI Eyes: No Pain, No Vision change, No Conjunctivae inflammation, No Eyelid inflammation, No Other, No Redness ENT: No Ear pain, No Ear discharge, No Nose pain, No Nose discharge, No Nose congestion, No Mouth pain, No Mouth swelling, No Throat pain, No Throat swelling, No Other Cardiovascular: No Chest Pain, No Palpitations, No Orthopnea, No Paroxysmal Noc. Dyspnea, No Edema, No Lt Headedness, No Other Respiratory: No Cough, No Dry, No Shortness of breath, No SOB with excertion, No Wheezing, No Hemoptysis, No Pleuritic Pain, No Sputum, No Other Gastrointestinal: Nausea, Vomiting, Abdominal Pain; No Diarrhea, No Constipation, No Melena, No Hematochezia; Other (Poor appetite) Genitourinary: No Dysuria, No Frequency, No Incontinence, No Hematuria, No Retention, No Other Musculoskeletal: No other, No neck pain, No shoulder pain, No arm pain, No back pain, No hand pain, No leg pain, No foot pain Skin: No Rash, No Lesions, No Jaundice, No Bruising, No Other Objective Vitals Vital Signs Date Time Temp Pulse Resp B/P (MAP) Pulse Ox O2 Delivery O2 Flow Rate FiO2 05/15/24 22:17 94 18 129/79 05/15/24 22:16 100.6 05/15/24 20:00 Room Air* 0 21 05/15/24 09:00 96 Intake/Output Intake and Output 05/15/24 07:00 Intake Total 1770 ml Balance 1770 ml Intake Oral 0 ml IV Total 1470 ml Blood Product 300 ml # Voids 2 # Bowel Movements 2 Exam GEN: Healthy appearing, well-developed, patient is in moderate distress HEENT: NC/AT; dry mucous membranes. NG tube inserted CV: RRR, no m/r/g. Tachycardia, on tele sinus tachycardia LUNGS: , no w/r/c. Bibasilar rales ABD: Tender to palpation in epigastrium, no bowel sounds heard, no masses or organomegaly. EXT: skin Warm, well perfused. no rashes. No clubbing, cyanosis, or edema. NEURO: Ambulating with no limitations. No focal deficits. Medications Current Medications Medications Dose Ordered Sig/Nishant Route Start Time Stop Time Status Last Admin Dose Admin Vancomycin HCl 0 ml @ 0 mls/hr UD IV 05/13/24 23:30 Sodium Chloride 1,000 ml @ 60 mls/hr [id number] IV 05/13/24 23:30 05/13/24 23:56 60 MLS/HR Acetaminophen/ Hydrocodone Bitart 1 tab Q4HP PRN PO 05/13/24 23:30 05/14/24 02:20 1 TAB Ondansetron HCl 4 mg Q4HP PRN IV 05/13/24 23:30 Docusate Sodium 100 mg BIDPRN PRN PO 05/13/24 23:30 Acetaminophen 650 mg Q6HP PRN PO 05/13/24 23:30 05/15/24 22:16 650 MG Morphine Sulfate 2 mg Q4HPRN PRN IV 05/13/24 23:30 05/15/24 22:17 2 MG Nitroglycerin 0.4 mg Q5MINP PRN SL 05/14/24 01:00 Morphine Sulfate 2 mg Q30M PRN IV 05/14/24 01:00 Metronidazole 100 ml @ 100 mls/hr Q8HR IV 05/14/24 06:00 05/15/24 22:04 100 MLS/HR Vancomycin HCl 200 ml @ 200 mls/hr Q8H IV 05/14/24 10:00 05/15/24 18:20 200 MLS/HR Pantoprazole Sodium 40 mg BID IV 05/14/24 22:00 05/15/24 22:02 40 MG Phenol/Menthol 1 spr Q2HP PRN MT 05/14/24 17:30 Cefepime HCl 50 ml @ 12.5 mls/hr Q8HR IV 05/14/24 22:00 05/15/24 22:03 12.5 MLS/HR Acetaminophen 650 mg Q6HP PRN [place] 05/14/24 22:00 05/14/24 23:29 650 MG Lorazepam 1 mg Q6HP PRN IV 05/15/24 11:45 Saccharomyces Boulardii 250 mg DAILY PO 05/15/24 16:00 05/15/24 18:20 250 MG Laboratory Results Laboratory Tests 05/15/24 04:56 05/15/24 21:05 Chemistry Test 05/15/24 04:56 05/15/24 21:05 Albumin 3.6 g/dL (3.2-4.8) 3.6 g/dL (3.2-4.8) Calcium Level 8.8 mg/dL (8.7-10.4) 8.6 mg/dL (8.7-10.4) L Total Protein 6.7 g/dL (5.7-8.2) 6.5 g/dL (5.7-8.2) LFT Test 05/15/24 04:56 05/15/24 21:05 Alanine Aminotransferase (ALT) < 9 U/L (7-40) < 9 U/L (7-40) Alkaline Phosphatase 107 U/L (46-116) 90 U/L (46-116) Aspartate Amino Transferase (AST) 10 U/L (13-40) L 10 U/L (13-40) L Total Bilirubin 1.5 mg/dL (0.2-1.0) H 1.1 mg/dL (0.2-1.0) H Urinalysis Test 05/14/24 01:47 Urine Color Colorless (Yellow) Urine Clarity Clear (Clear) Urine pH 5.5 (5.0-9.0) Urine Specific [place] 1.049 (1.001-1.035) Urine Protein 1+ (Negative) H Urine Ketones Negative (Negative) Urine Blood 3+ /uL (Negative) H Urine Nitrite Negative (Negative) Urine Bilirubin Negative (Negative) Urine Urobilinogen Normal mg/dL (Negative) Urine Leukocyte Esterase 3+ /uL (Negative) Urine RBC 296 /hpf (0 - 4) Urine WBC 73 /hpf (0 - 5) Urine Squamous Epithelial Cells Few /hpf (<5) Urine Bacteria Few /hpf (None Seen) H Urine Hyaline Casts Mod /lpf (0 - 2) Urine Mucus Few (None Seen) Urine Glucose Normal mg/dL (Normal) Microbiology Microbiology Date/Time Source Procedure Growth Status 05/15/24 00:20 Stool Clostridium difficile Toxin Assay - Final Complete 05/13/24 23:19 Blood Blood Culture - Preliminary NO GROWTH AFTER 24 HOURS OF INCUBATION. Resulted Labs and/or images reviewed: Labs reviewed by me, Image(s) reviewed by me Assessment/Plan Assessment/Plan - 05/15 - patient is having pain from NG tube, this is causing her chest pain. Abdominal pain has improved significantly. She continues to have fecal incontinence that is watery in consistency. She denies having a more fevers/chills. Small bowel series is done and transit time is adequate. NG tube is removed. Surgery consult following, would like to keep patient NPO. We will continue antibiotics and wait for stool studies to return. Anemia stable today SBO Complicated collection in right lower quadrant, phlegmon in right lower quadrant Concern for regional ileus - per CT - abd pain imprving. - NG tube removed after small-bowel series is passed. - - surg onboard and following, keep patient NPO shock - anemia vs sepsis (diarrhea/GI vs UTI) - broad abx - blood to keep hb>7 diarrhea, fecal incontinence leukocytosis sepsis septic shock lactic acidosis hypovolemia hypotension - pt been having diarrhea for a few days. BP low (not able to give morphine due to this, patient w abd pain continuing) - diarrhea possible infectious because no other sources(no dysuria, cough, neck stiff/pain). - test stool (cdiff, wbc, bact cx, O&P) - ctx/flagyl already started, need escalation, will do vanc/cefepime/flagyll now. uncertain if this is sepsis or hypovol shock - risk of [id number] worsening condition... no test available to test for this strain - should empiric start po vanc , florastor... but CANNOT , patient on SBO treatment (NGtube suction etc). - continue to hold off p.o. - will give norco, avoid iv opiates bz low BP. will give toradol iv as needed (one time orders by hospitalist).. UTI - also ua dirty.. - ucx pend - already on ctx. (will escalation to vanc/cefepime/flagyll) anemia - no sources. - CT has uterine fibroids but she persists that no menorhaggia, only 1-2 pads used.. - anemia could be O157:H7. concern for hemolysis. Tbili is mild elevated.. - could be production issue - will get retic. and will need consult heme - will order hapto and LDH, smear. - gi bleed - pepcid iv bid. diet - npo gi ppx - pepcid bid dvt ppx - scd med Tele Plan discussed with: Patient My Orders Orders - KEVEN WATSON MD Procedure Category Date Status Time Small Bowel Series-W XY 05/15/24 Resulted Gastrogra 11:35 Lorazepam 2mg/Ml Inj PHA 05/15/24 In Process (Ativan Inj) 11:45 Discontinue Ng ORDERS 05/15/24 Transmitted 15:00 Communication Order ORDERS 05/15/24 Transmitted 15:00 Florastor (S. PHA 05/15/24 In Process Boulardii) (Florastor) 16:00 Date of Service: May 15, 2024 Billing Provider: KEVEN WATSON MD Common Visit Codes: [id number] INP/OBS CARE(HIGH) KEVEN WATSON MD May 15, 2024 22:40
[2024-05-16] VITALS (8 sets, daily range): BP systolic 118–136; BP diastolic 78–84; PULSE 83–105; RESP 16–20; TEMP 98.3–99.6; O2SAT 92–100
[2024-05-16] MEDS: POTASSIUM CHL 20MEQ/100ML 100 ML IV SCH (01:43)
[2024-05-16] MEDS: VANCOMYCIN 1GM/200ML PREMIX 200 ML IV SCH ×2 (03:30→20:43)
[2024-05-16] MEDS: POTASSIUM CHL 20 Meq TABLET PO ONE (04:08)
[2024-05-16 10:24] LABS: Basophils # (auto) 0 10 ^3/uL (0-0.2); Eosinophils # (auto) 0 10 ^3/uL (0-0.8); Hemoglobin 8.8 g/dL (12.2-16.2); Lymphocytes # (auto) 1.3 10 ^3/uL (0.4-5.4); Nucleated Red Blood Cells % 0.1 %; White Blood Cell 24.6 10^3/uL (4.4-10.8)
[2024-05-16 10:26] LABS: Basophils % (auto) 0.2 % (0.0-2.0); Eosinophils % (auto) 0.1 % (0.0-7.0); Hematocrit 30.4 % (36.0-46.0); Lymphocytes % (auto) 5.1 % (10.0-50.0); Mean Corpuscular Hemoglobin 20.6 pg (28.0-32.0); Mean Corpuscular Volume 70.9 fL (80.0-100.0); Monocytes # (auto) 1.6 10 ^3/uL (0-1.3); Monocytes % (auto) 6.6 % (0.0-12.0); Neutrophils # (auto) 21.7 10 ^3/uL (1.6-8.6); Platelet Count (auto) 195 10^3/uL (140-450); Red Blood Cells 4.29 10^6/uL (4.0-5.20); Red Cell Distribution Width 32.9 % (11.8-14.3)
[2024-05-16 10:56] LABS: Albumin 3.7 g/dL (3.2-4.8); Alkaline Phosphatase 94 U/L (46-116); Anion Gap 8 (5-15); Aspartate Aminotransferase 12 U/L (13-40); BUN/Creatinine Ratio 21.8 (10.0-20.0); Blood Urea Nitrogen 12 mg/dL (9-23); Calcium 9.2 mg/dL (8.7-10.4); Carbon Dioxide 19 mmol/L (20-31); Chloride 115 mmol/L (98-107); Glucose 108 mg/dL (74-106); Potassium 3.6 mmol/L (3.5-5.1); Sodium 142 mmol/L (136-145); Total Protein 7.1 g/dL (5.7-8.2)
[2024-05-16 11:00] LABS: Alanine Aminotransferase < 9 U/L (7-40)
[2024-05-16 12:04] LABS: Anisocytosis Marked; Hypochromia Marked; Platelet Estimate Adequate
--- NOTE | 2024-05-16 14:55 | DVHPN2 ---
Progress Note Date Seen: May 16, 2024 Medical Necessity Reason Pt with a Central, PICC or Fol: No Objective vital signs Vital Sign Date Time Temp Pulse Resp B/P (MAP) Pulse Ox O2 Delivery O2 Flow Rate FiO2 05/16/24 09:00 98.4 89 16 125/83 (97) 92 98.4 05/16/24 08:00 Nasal Cannula* 2 28 Total Intake and Output 05/15/24 05/15/24 05/16/24 15:00 23:00 07:00 Intake Total 250 ml 100 ml 150 ml Balance 250 ml 100 ml 150 ml medications Current Medications Medications Dose Ordered Sig/Nishant Route Start Time Stop Time Status Last Admin Dose Admin Vancomycin HCl 0 ml @ 0 mls/hr UD IV 05/13/24 23:30 Sodium Chloride 1,000 ml @ 60 mls/hr [id number] IV 05/13/24 23:30 05/13/24 23:56 60 MLS/HR Acetaminophen/ Hydrocodone Bitart 1 tab Q4HP PRN PO 05/13/24 23:30 05/14/24 02:20 1 TAB Ondansetron HCl 4 mg Q4HP PRN IV 05/13/24 23:30 Docusate Sodium 100 mg BIDPRN PRN PO 05/13/24 23:30 Acetaminophen 650 mg Q6HP PRN PO 05/13/24 23:30 05/15/24 22:16 650 MG Morphine Sulfate 2 mg Q4HPRN PRN IV 05/13/24 23:30 05/15/24 22:17 2 MG Nitroglycerin 0.4 mg Q5MINP PRN SL 05/14/24 01:00 Morphine Sulfate 2 mg Q30M PRN IV 05/14/24 01:00 Metronidazole 100 ml @ 100 mls/hr Q8HR IV 05/14/24 06:00 05/15/24 22:04 100 MLS/HR Pantoprazole Sodium 40 mg BID IV 05/14/24 22:00 05/16/24 11:31 40 MG Phenol/Menthol 1 spr Q2HP PRN MT 05/14/24 17:30 Acetaminophen 650 mg Q6HP PRN [place] 05/14/24 22:00 05/14/24 23:29 650 MG Lorazepam 1 mg Q6HP PRN IV 05/15/24 11:45 Saccharomyces Boulardii 250 mg DAILY PO 05/15/24 16:00 05/15/24 18:20 250 MG Cefepime HCl 50 ml @ 12.5 mls/hr Q8H IV 05/16/24 16:00 Vancomycin HCl 200 ml @ 200 mls/hr Q8H IV 05/16/24 20:00 laboratory and microbiology Laboratory Tests 05/16/24 10:00 Test 05/16/24 10:00 Range/Units Serum Glucose 108 H 74-106 mg/dL Microbiology Date/Time Source Procedure Growth Status 05/15/24 00:20 Stool Clostridium difficile Toxin Assay - Final Complete 05/13/24 23:19 Blood Blood Culture - Preliminary NO GROWTH AFTER 48 HOURS OF INCUBATION. Resulted Problem List/Assessment/Plan Problem List/Assessment/Plan AFEBRILE VSS ABD SOFT LESS TENDER BM + GASTROGRAFIN RESOLVING SBO WBC DOWN ILEITIS RESOLVING CONTINUE CLOSE OBSERVATION ALLOW CLEAR LIQUIDS Plan discussed with: Patient CC Plasma Assessment Blood Product Administration S: [id number] LLOYD CORDOVA MD May 16, 2024 14:55
[2024-05-16] MEDS: CEFEPIME 2GM/50ML NS 50 ML IV SCH (17:00)
--- NOTE | 2024-05-16 23:01 | DVHPN2 ---
Subjective The patient is a 39-year-old female with past medical history of uterine fibroids who presented to [facility] ED with complaint of acute abdominal pain. Patient reports symptoms progressively get worse with constant epigastric abdominal pain, associated with nausea, three episodes of vomiting, loss of appetite, generalized weakness, very skin pale, getting worse today that prompted this visit. Patient states she is currently on her menstrual period x 4 days. The patient was seen and evaluated in the ED, laboratory data shows WBC 30.4, hemoglobin 4.5, hematocrit 17.6, platelets 231, sodium 137, potassium 3.1, BUN 10, creatinine 0.90, glucose 139, lactic acid 3.0 trending down to 2.7, total bilirubin 1.3, blood pressure 92/54, heart rate 120, temperature 98.8 F, O2 saturation 96% on room air. Abdomen/pelvis CT revealing multiple inflamed and abnormally dilated loops of small bowel seen with probable transition point in the right lower quadrant, suspicious for small bowel obstruction; extensive phlegmon is seen in the right lower quadrant suggestive of severe inflammatory process; trace pelvic ascites is seen which is localized in the right lower quadrant; large masslike lesion is seen in the right uterine fundus measuring up to 6.8 cm. Patient was started on IV antibiotic regimen vancomycin, given 2 units of PRBC, 05/14- Patient is still having pain, has NG tube inserted. Stomach pain and the NG tube insertion is also causing chest pain. - 05/15 - patient is having pain from NG tube, this is causing her chest pain. Abdominal pain has improved significantly. She continues to have fecal incontinence that is watery in consistency. She denies having a more fevers/chills. Small bowel series is done and transit time is adequate. NG tube is removed. Surgery consult following, would like to keep patient NPO. We will continue antibiotics and wait for stool studies to return. Reviewed: H&P Changes from previous H/P or p: No Changes General: Per HPI Musculoskeletal: No other, No neck pain, No shoulder pain, No arm pain, No back pain, No hand pain, No leg pain, No foot pain Skin: No Rash, No Lesions, No Jaundice, No Bruising, No Other Objective Vitals Vital Signs Date Time Temp Pulse Resp B/P (MAP) Pulse Ox O2 Delivery O2 Flow Rate FiO2 05/16/24 17:00 98.6 91 16 136/84 (101) 93 98.6 05/16/24 08:00 Nasal Cannula* 2 28 Intake/Output Intake and Output 05/16/24 07:00 Intake Total 500 ml Balance 500 ml Intake Oral 0 ml IV Total 500 ml # Voids 6 # Bowel Movements 2 Exam GEN: Healthy appearing, well-developed, patient is no acute distress HEENT: NC/AT; moist mucous membranes. NG tube was removed CV: RRR, no m/r/g. Tachycardia, on tele sinus tachycardia LUNGS: , no w/r/c. Bibasilar rales ABD: No longer tender in epigastrium, hypoactive bowel sounds, no masses or organomegaly. EXT: skin Warm, well perfused. no rashes. No clubbing, cyanosis, or edema. NEURO: Ambulating with no limitations. No focal deficits. Medications Current Medications Medications Dose Ordered Sig/Nishant Route Start Time Stop Time Status Last Admin Dose Admin Vancomycin HCl 0 ml @ 0 mls/hr UD IV 05/13/24 23:30 Sodium Chloride 1,000 ml @ 60 mls/hr [id number] IV 05/13/24 23:30 05/13/24 23:56 60 MLS/HR Acetaminophen/ Hydrocodone Bitart 1 tab Q4HP PRN PO 05/13/24 23:30 05/14/24 02:20 1 TAB Ondansetron HCl 4 mg Q4HP PRN IV 05/13/24 23:30 Docusate Sodium 100 mg BIDPRN PRN PO 05/13/24 23:30 Acetaminophen 650 mg Q6HP PRN PO 05/13/24 23:30 05/16/24 20:52 650 MG Morphine Sulfate 2 mg Q4HPRN PRN IV 05/13/24 23:30 05/15/24 22:17 2 MG Nitroglycerin 0.4 mg Q5MINP PRN SL 05/14/24 01:00 Morphine Sulfate 2 mg Q30M PRN IV 05/14/24 01:00 Metronidazole 100 ml @ 100 mls/hr Q8HR IV 05/14/24 06:00 05/16/24 14:00 100 MLS/HR Pantoprazole Sodium 40 mg BID IV 05/14/24 22:00 05/16/24 21:17 40 MG Phenol/Menthol 1 spr Q2HP PRN MT 05/14/24 17:30 Acetaminophen 650 mg Q6HP PRN SC 05/14/24 22:00 05/14/24 23:29 650 MG Lorazepam 1 mg Q6HP PRN IV 05/15/24 11:45 Saccharomyces Boulardii 250 mg DAILY PO 05/15/24 16:00 05/16/24 10:00 250 MG Cefepime HCl 50 ml @ 12.5 mls/hr Q8H IV 05/16/24 16:00 05/16/24 17:00 12.5 MLS/HR Vancomycin HCl 200 ml @ 200 mls/hr Q8H IV 05/16/24 20:00 05/16/24 20:43 200 MLS/HR Laboratory Results Laboratory Tests 05/16/24 10:00 Chemistry Test 05/16/24 10:00 Albumin 3.7 g/dL (3.2-4.8) Calcium Level 9.2 mg/dL (8.7-10.4) Total Protein 7.1 g/dL (5.7-8.2) LFT Test 05/16/24 10:00 Alanine Aminotransferase (ALT) < 9 U/L (7-40) Alkaline Phosphatase 94 U/L (46-116) Aspartate Amino Transferase (AST) 12 U/L (13-40) L Total Bilirubin 1.0 mg/dL (0.2-1.0) Urinalysis Test 05/14/24 01:47 Urine Color Colorless (Yellow) Urine Clarity Clear (Clear) Urine pH 5.5 (5.0-9.0) Urine Specific [place] 1.049 (1.001-1.035) Urine Protein 1+ (Negative) H Urine Ketones Negative (Negative) Urine Blood 3+ /uL (Negative) H Urine Nitrite Negative (Negative) Urine Bilirubin Negative (Negative) Urine Urobilinogen Normal mg/dL (Negative) Urine Leukocyte Esterase 3+ /uL (Negative) Urine RBC 296 /hpf (0 - 4) Urine WBC 73 /hpf (0 - 5) Urine Squamous Epithelial Cells Few /hpf (<5) Urine Bacteria Few /hpf (None Seen) H Urine Hyaline Casts Mod /lpf (0 - 2) Urine Mucus Few (None Seen) Urine Glucose Normal mg/dL (Normal) Microbiology Microbiology Date/Time Source Procedure Growth Status 05/15/24 00:20 Stool Clostridium difficile Toxin Assay - Final Complete 05/13/24 23:19 Blood Blood Culture - Preliminary NO GROWTH AFTER 48 HOURS OF INCUBATION. Resulted Assessment/Plan Assessment/Plan - 05/16-NG tube was removed yesterday, concern for right lower quadrant phlegmon causing regional ileitis. However this morning she continues to feel improved and is hungry. Discussed with surgery plan to start CLD. Labs are stable anemia stable. Tentative plan: If patient continues to tolerate CLD, we will escalate to full liquid and we will discuss with surgery to possibly discharge with close follow up outpatient. This is the plan for Tomorrow - patient is having pain from NG tube, this is causing her chest pain. Abdominal pain has improved significantly. She continues to have fecal incontinence that is watery in consistency. She denies having a more fevers/chills. Small bowel series is done and transit time is adequate. NG tube is removed. Surgery consult following, would like to keep patient NPO. We will continue antibiotics and wait for stool studies to return. Anemia stable today SBO, resolving Complicated collection in right lower quadrant, phlegmon in right lower quadrant Concern for regional ileus - per CT - abd pain imprving. Small-bowel series done on 05/15, this is passed an NG tube was removed. - NG tube removed after small-bowel series is passed. - - surg onboard and following, have advanced patient to CLD and are monitoring shock - anemia vs sepsis (diarrhea/GI vs UTI) - broad abx - blood to keep hb>7 diarrhea, fecal incontinence leukocytosis sepsis septic shock lactic acidosis hypovolemia hypotension - pt been having diarrhea for a few days. BP low (not able to give morphine due to this, patient w abd pain continuing) - diarrhea possible infectious because no other sources(no dysuria, cough, neck stiff/pain). - test stool (cdiff, wbc, bact cx, O&P) - ctx/flagyl already started, need escalation, will do vanc/cefepime/flagyll now. uncertain if this is sepsis or hypovol shock - risk of O157H7 worsening condition... no test available to test for this strain - should empiric start po vanc , florastor... but CANNOT , patient on SBO treatment (NGtube suction etc). - continue to hold off p.o. - will give norco, avoid iv opiates bz low BP. will give toradol iv as needed (one time orders by hospitalist).. UTI - also ua dirty.. - ucx pend - already on ctx. (will escalation to vanc/cefepime/flagyll) anemia - no sources. - CT has uterine fibroids but she persists that no menorhaggia, only 1-2 pads used.. - anemia could be O157:H7. concern for hemolysis. Tbili is mild elevated.. - could be production issue - will get retic. and will need consult heme - will order hapto and LDH, smear. - gi bleed - pepcid iv bid. diet - CLD gi ppx - pepcid bid dvt ppx - scd med Tele Plan discussed with: Patient My Orders Orders - KEVEN WATSON MD Procedure Category Date Status Time Cefepime 2gm/50ml Ns PHA 05/16/24 In Process (Maxipime 2gm/50ml) 16:00 Date of Service: May 16, 2024 Billing Provider: KEVEN WATSON MD Common Visit Codes: [id number] INP/OBS CARE(HIGH) KEVEN WATSON MD May 16, 2024 23:01
[2024-05-17] VITALS (8 sets, daily range): BP systolic 120–136; BP diastolic 72–95; PULSE 77–100; RESP 16–19; TEMP 97.7–100; O2SAT 94–97
[2024-05-17 06:30] LABS: Eosinophils # (auto) 0.1 10 ^3/uL (0-0.8); Nucleated Red Blood Cells % 0.1 %; Platelet Count (auto) 238 10^3/uL (140-450)
[2024-05-17 06:33] LABS: Basophils # (auto) 0 10 ^3/uL (0-0.2); Basophils % (auto) 0.1 % (0.0-2.0); Eosinophils % (auto) 0.4 % (0.0-7.0); Lymphocytes # (auto) 1.2 10 ^3/uL (0.4-5.4); Lymphocytes % (auto) 6.4 % (10.0-50.0); Mean Corpuscular Hemoglobin 20.7 pg (28.0-32.0); Mean Corpuscular Hgb Conc. 29.8 g/dL (32.0-36.0); Mean Corpuscular Volume 69.2 fL (80.0-100.0); Monocytes # (auto) 1.5 10 ^3/uL (0-1.3); Monocytes % (auto) 7.8 % (0.0-12.0); Neutrophils # (auto) 16.7 10 ^3/uL (1.6-8.6); Neutrophils % (auto) 85.3 % (37.0-80.0); Red Blood Cells 4.34 10^6/uL (4.0-5.20); Red Cell Distribution Width 33.6 % (11.8-14.3); White Blood Cell 19.5 10^3/uL (4.4-10.8)
[2024-05-17 06:37] LABS: Albumin 3.8 g/dL (3.2-4.8); Alkaline Phosphatase 100 U/L (46-116); Anion Gap 8 (5-15); Aspartate Aminotransferase < 8 U/L (13-40); BUN/Creatinine Ratio 23.6 (10.0-20.0); Blood Urea Nitrogen 13 mg/dL (9-23); Carbon Dioxide 21 mmol/L (20-31); Chloride 112 mmol/L (98-107); Glucose 127 mg/dL (74-106); Sodium 141 mmol/L (136-145)
[2024-05-17 06:39] LABS: Bilirubin, Total 0.7 mg/dL (0.2-1.0); Total Protein 7.5 g/dL (5.7-8.2)
[2024-05-17 06:50] LABS: Alanine Aminotransferase 9 U/L (7-40)
--- NOTE | 2024-05-17 08:36 | DVHINCON2 ---
Date of service: May 17, [address] Pepe Degroot Reason for Consultation Microcytic hypochromic anemia with heavy menstrual cycles History of Present Illness 39 years old female who has been in good health except for history of fibroids and she has heavy menstrual cycles off and on. This cycle has been going on for seven days and she is having heavy cycles. She has seen her information and referral director and is planned to see the surgeon for the fibroids She is admitted with abdominal pains and a feeling of nausea. Generalized weakn ess On 05/13/2024 the CBC showed a white count of 30.4 hemoglobin 4.5 hematocrit 17.6 platelets 231 she has been given 3 units of packed red cells in the white count today is 19.5 hemoglobin 9 MCV 69.2 platelets 238 with a normal differential Potassium is three calcium nine normal liver and renal functions. Total protein 7.5 albumin 3.8. No iron studies done CT of the abdomen pelvis showed multiple inflamed and abnormally dilated loops of small bowel with possible transition point in the right lower quadrant suspicious for small bowel obstruction. Large masslike lesion is seen in the right uterine fundus measuring up to 6.8 cm possibly a fibroid Small-bowel follow-through showed no acute process. Contrast is identified within the colon by 45 which is a normal transit time The patient is having any abdominal pains nausea or vomiting. She still continues with her menstrual cycle. No blood in the stools. Weight loss. No fevers night sweats no bruising. No headaches. Past Medical History Anemia and has had five pregnancies Family History: Diabetes mellitus G8 MOTHER Family History Family history of diabetes. No malignancy or hematological disorders Social History No smoking rare drinking has five children in good health Allergies: Coded Allergies: NO KNOWN ALLERGIES (Unverified , 05/13/24) Home Meds Reported Medications Ibuprofen (Advil) 200 Mg Cap, 200 MG PO Q6HP PRN for PAIN SCALE 1 THRU 6, CAP 05/14/24 Current Medications Current Medications Medications (Trade) Dose Ordered Sig/Nishant Route PRN Reason Start Time Stop Time Status Last Admin Cefepime HCl 50 ml @ 12.5 mls/hr Q8H IV 05/16/24 16:00 05/17/24 07:49 Vancomycin HCl 200 ml @ 200 mls/hr Q8H IV 05/16/24 20:00 05/17/24 04:04 Vital Signs Vital Signs Date Time Temp Pulse Resp B/P (MAP) Pulse Ox O2 Delivery O2 Flow Rate FiO2 05/17/24 05:00 98.7 92 19 134/89 (104) 96 98.7 05/16/24 20:00 Room Air* 0 21 Physical Exam Moderately built and nourished, in no acute distress, alert and oriented. No jaundice Head and neck: Unremarkable for any masses or neck nodes. No conjunctival or mucosal hemorrhage Lungs: Clear Cardiovascular: S1-S2 heard well Abdomen: No organomegaly, tenderness or ascites. Bowel sounds are present. Extremities: No clubbing edema cyanosis or calf tenderness. Skin: Unremarkable for petechia purpura ecchymosis Lymphadenopathy: None Neurological exam: No focal deficit Labs/Diagnostic Data Labs Test 05/17/24 05:57 05/16/24 10:00 05/15/24 04:56 05/15/24 01:00 Range/Units White Blood Count 19.5 H 4.4-10.8 10^3/uL Red Blood Count 4.34 4.0-5.20 10^6/uL Hemoglobin 9.0 L 12.2-16.2 g/dL Hematocrit 30.0 L 36.0-46.0 % Mean Corpuscular Volume 69.2 L 80.0-100.0 fL Mean Corpuscular Hemoglobin 20.7 L 28.0-32.0 pg Mean Corpuscular Hemoglobin Concent 29.8 L 32.0-36.0 g/dL Red Cell Distribution Width 33.6 H 11.8-14.3 % Platelet Count 238 140-450 10^3/uL Mean Platelet Volume 9.0 6.9-10.8 fL Neutrophils (%) (Auto) 85.3 H 37.0-80.0 % Lymphocytes (%) (Auto) 6.4 L 10.0-50.0 % Monocytes (%) (Auto) 7.8 0.0-12.0 % Eosinophils (%) (Auto) 0.4 0.0-7.0 % Basophils (%) (Auto) 0.1 0.0-2.0 % Neutrophils # (Auto) 16.7 H 1.6-8.6 10 ^3/uL Lymphocytes # (Auto) 1.2 0.4-5.4 10 ^3/uL Monocytes # (Auto) 1.5 H 0-1.3 10 ^3/uL Eosinophils # (Auto) 0.1 0-0.8 10 ^3/uL Basophils # (Auto) 0 0-0.2 10 ^3/uL Nucleated Red Blood Cells 0.1 % Sodium Level 141 136-145 mmol/L Potassium Level 3.0 L 3.5-5.1 mmol/L Chloride Level 112 H 98-107 mmol/L Carbon Dioxide Level 21 20-31 mmol/L Anion Gap 8 5-15 Blood Urea Nitrogen 13 9-23 mg/dL Creatinine 0.55 0.550-1.02 mg/dL Glomerular Filtration Rate Calc 121 >90 mL/min BUN/Creatinine Ratio 23.6 H 10.0-20.0 Serum Glucose 127 H 74-106 mg/dL Calcium Level 9.0 8.7-10.4 mg/dL Total Bilirubin 0.7 0.2-1.0 mg/dL Aspartate Amino Transferase (AST) < 8 L 13-40 U/L Alanine Aminotransferase (ALT) 9 7-40 U/L Alkaline Phosphatase 100 46-116 U/L Total Protein 7.5 5.7-8.2 g/dL Albumin 3.8 3.2-4.8 g/dL Platelet Estimate Adequate Hypochromasia (manual) Marked Anisocytosis (manual) Marked Microcytosis Moderate Differential Total Cells Counted 100.0 100 Neutrophils % (Manual) 78 37.0-80.0 Band Neutrophils % (Manual) 15 Lymphocytes % (Manual) 2 L 10.0-50.0 Monocytes % (Manual) 5 0-12 Eosinophils % (Manual) 0 0-7 Basophils % (Manual) 0 0.0-2.0 Metamyelocytes % (manual) 0 Myelocytes % (Manual) 0 Promyelocytes % (Manual) 0 Blast Cells % (Manual) 0 Reactive Lymphocytes 0 Vancomycin Level Trough 12.7 H 5-10 ug/mL Test 05/15/24 00:20 05/14/24 07:21 05/14/24 01:47 05/14/24 01:07 Range/Units Stool for White Cells Rare Reticulocyte Count (auto) 2.45 H 0.5-1.5 % Haptoglobin 155 33-278 mg/dL Lactate Dehydrogenase 150 120-246 U/L Urine Color Colorless Yellow Urine Clarity Clear Clear Urine pH 5.5 5.0-9.0 Urine Specific [place] 1.049 H 1.001-1.035 Urine Protein 1+ H Negative Urine Ketones Negative Negative Urine Blood 3+ H Negative /uL Urine Nitrite Negative Negative Urine Bilirubin Negative Negative Urine Urobilinogen Normal Negative mg/dL Urine Leukocyte Esterase 3+ Negative /uL Urine RBC 296 0 - 4 /hpf Urine WBC 73 0 - 5 /hpf Urine Squamous Epithelial Cells Few <5 /hpf Urine Bacteria Few H None Seen /hpf Urine Hyaline Casts Mod 0 - 2 /lpf Urine Mucus Few None Seen Urine Glucose Normal Normal mg/dL Lactic Acid Level 2.7 *H 0.4-2.0 mmol/L Test 05/13/24 22:35 Range/Units Giant Platelets Few Polychromasia Slight Stomatocytes Few Hemoglobin A1c 4.7 <5.7 % A1C Lipase 23 12-53 U/L Beta HCG, Quantitative 0.8 L 1.5-4.2 mIU/mL Microbiology Date/Time Source Procedure Growth Status 05/15/24 00:20 Stool Clostridium difficile Toxin Assay - Final Complete 05/13/24 23:19 Blood Blood Culture - Preliminary NO GROWTH AFTER 72 HOURS OF INCUBATION. Resulted Assessment 1. Microcytic hypochromic anemia consistent clinically with iron deficiency (no iron levels have been checked and the patient has been transfused 3 units of packed red cells). Patient has heavy menstrual cycle. The present cycle is lasting for seven days and still continues. Known to have fibroids and is waiting for surgery Haptoglobin 155, retic count 2.45 ( clinically the patient has iron deficiency and I do not see any evidence of hemolysis) 2. Small-bowel obstruction which has improved Plan/Recommendation Continue her supportive care. After discharge he could be given ferrous sulfate 325 mg p.o. q.d. with vitamin- C She will see her helpdesk administrator surgeon on June 17, 2024 for the fibroids Plan discussed with: Patient FERNANDO AMBROSE MD May 17, 2024 08:36
--- NOTE | 2024-05-17 12:46 | DVHPN2 ---
Reviewed: Care Plan, H&P Changes from previous H/P or p: No Changes General: Per HPI Musculoskeletal: No other, No neck pain, No shoulder pain, No arm pain, No back pain, No hand pain, No leg pain, No foot pain Skin: No Rash, No Lesions, No Jaundice, No Bruising, No Other Objective Vitals Vital Signs Date Time Temp Pulse Resp B/P (MAP) Pulse Ox O2 Delivery O2 Flow Rate FiO2 05/17/24 09:00 98.5 89 16 120/81 (94) 94 98.5 05/17/24 08:00 Room Air* 0 21 Intake/Output Intake and Output 05/17/24 07:00 Intake Total 1205 ml Balance 1205 ml Intake Oral 605 ml IV Total 600 ml # Voids 4 Medications Current Medications Medications Dose Ordered Sig/Nishant Route Start Time Stop Time Status Last Admin Dose Admin Vancomycin HCl 0 ml @ 0 mls/hr UD IV 05/13/24 23:30 Sodium Chloride 1,000 ml @ 60 mls/hr [id number] IV 05/13/24 23:30 05/17/24 12:14 60 MLS/HR Acetaminophen/ Hydrocodone Bitart 1 tab Q4HP PRN PO 05/13/24 23:30 05/14/24 02:20 1 TAB Ondansetron HCl 4 mg Q4HP PRN IV 05/13/24 23:30 Docusate Sodium 100 mg BIDPRN PRN PO 05/13/24 23:30 Acetaminophen 650 mg Q6HP PRN PO 05/13/24 23:30 05/16/24 20:52 650 MG Morphine Sulfate 2 mg Q4HPRN PRN IV 05/13/24 23:30 05/17/24 02:13 2 MG Nitroglycerin 0.4 mg Q5MINP PRN SL 05/14/24 01:00 Morphine Sulfate 2 mg Q30M PRN IV 05/14/24 01:00 Metronidazole 100 ml @ 100 mls/hr Q8HR IV 05/14/24 06:00 05/17/24 05:30 100 MLS/HR Pantoprazole Sodium 40 mg BID IV 05/14/24 22:00 05/17/24 10:14 40 MG Phenol/Menthol 1 spr Q2HP PRN MT 05/14/24 17:30 Acetaminophen 650 mg Q6HP PRN RI 05/14/24 22:00 05/14/24 23:29 650 MG Lorazepam 1 mg Q6HP PRN IV 05/15/24 11:45 Saccharomyces Boulardii 250 mg DAILY PO 05/15/24 16:00 05/17/24 10:14 250 MG Cefepime HCl 50 ml @ 12.5 mls/hr Q8H IV 05/16/24 16:00 05/17/24 07:49 12.5 MLS/HR Vancomycin HCl 200 ml @ 200 mls/hr Q8H IV 05/16/24 20:00 05/17/24 12:14 200 MLS/HR Laboratory Results Laboratory Tests 05/17/24 05:57 Chemistry Test 05/17/24 05:57 Albumin 3.8 g/dL (3.2-4.8) Calcium Level 9.0 mg/dL (8.7-10.4) Total Protein 7.5 g/dL (5.7-8.2) LFT Test 05/17/24 05:57 Alanine Aminotransferase (ALT) 9 U/L (7-40) Alkaline Phosphatase 100 U/L (46-116) Aspartate Amino Transferase (AST) < 8 U/L (13-40) L Total Bilirubin 0.7 mg/dL (0.2-1.0) Urinalysis Test 05/14/24 01:47 Urine Color Colorless (Yellow) Urine Clarity Clear (Clear) Urine pH 5.5 (5.0-9.0) Urine Specific [place] 1.049 (1.001-1.035) Urine Protein 1+ (Negative) H Urine Ketones Negative (Negative) Urine Blood 3+ /uL (Negative) H Urine Nitrite Negative (Negative) Urine Bilirubin Negative (Negative) Urine Urobilinogen Normal mg/dL (Negative) Urine Leukocyte Esterase 3+ /uL (Negative) Urine RBC 296 /hpf (0 - 4) Urine WBC 73 /hpf (0 - 5) Urine Squamous Epithelial Cells Few /hpf (<5) Urine Bacteria Few /hpf (None Seen) H Urine Hyaline Casts Mod /lpf (0 - 2) Urine Mucus Few (None Seen) Urine Glucose Normal mg/dL (Normal) Microbiology Microbiology Date/Time Source Procedure Growth Status 05/15/24 00:20 Stool Clostridium difficile Toxin Assay - Final Complete 05/13/24 23:19 Blood Blood Culture - Preliminary NO GROWTH AFTER 72 HOURS OF INCUBATION. Resulted Labs and/or images reviewed: Labs reviewed by me, Image(s) reviewed by me Assessment/Plan Assessment/Plan Sepsis with the elevated white [id number] secondary to urinary tract infection: Blood cultures negative Acute urinary tract infection urine cultures pending: Continue cefepime vancomycin Diarrhea: Shiga negative C diff negative Severe Iron-deficiency anemia with hemoglobin 4.5, improved 9.0 after 3 units of RBC transfusion hematology consult by Dr. 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 with her awning erector on 06/17/2024 Acute small bowel obstruction resolved WBC still elevated at 19 K Plan discussed with: Patient My Orders Orders - JOHNNIE HERNANDEZ MD Procedure Category Date Status Time Urine Bacterial KESHA 05/17/24 Transmitted Culture 12:36 Date of Service: May 17, 2024 Billing Provider: JOHNNIE HERNANDEZ MD Common Visit Codes: [id number] INP/OBS CARE(HIGH) JOHNNIE HERNANDEZ MD May 17, 2024 12:46
[2024-05-17] MEDS: VANCOMYCIN 1.25GM/250ML 250 ML IV SCH (20:08)
--- NOTE | 2024-05-17 21:04 | DVHPN2 ---
Progress Note Date Seen: May 17, 2024 Medical Necessity Reason Pt with a Central, PICC or Fol: No Objective vital signs Vital Sign Date Time Temp Pulse Resp B/P (MAP) Pulse Ox O2 Delivery O2 Flow Rate FiO2 05/17/24 17:00 97.7 100 18 130/87 (101) 97 97.7 05/17/24 08:00 Room Air* 0 21 Total Intake and Output 05/16/24 05/16/24 05/17/24 15:00 23:00 07:00 Intake Total 300 ml 60 ml 845 ml Balance 300 ml 60 ml 845 ml medications Current Medications Medications Dose Ordered Sig/Nishant Route Start Time Stop Time Status Last Admin Dose Admin Vancomycin HCl 0 ml @ 0 mls/hr UD IV 05/13/24 23:30 Sodium Chloride 1,000 ml @ 60 mls/hr [id number] IV 05/13/24 23:30 05/17/24 12:14 60 MLS/HR Acetaminophen/ Hydrocodone Bitart 1 tab Q4HP PRN PO 05/13/24 23:30 05/14/24 02:20 1 TAB Ondansetron HCl 4 mg Q4HP PRN IV 05/13/24 23:30 Docusate Sodium 100 mg BIDPRN PRN PO 05/13/24 23:30 Acetaminophen 650 mg Q6HP PRN PO 05/13/24 23:30 05/16/24 20:52 650 MG Morphine Sulfate 2 mg Q4HPRN PRN IV 05/13/24 23:30 05/17/24 02:13 2 MG Nitroglycerin 0.4 mg Q5MINP PRN SL 05/14/24 01:00 Morphine Sulfate 2 mg Q30M PRN IV 05/14/24 01:00 Metronidazole 100 ml @ 100 mls/hr Q8HR IV 05/14/24 06:00 05/17/24 13:47 100 MLS/HR Pantoprazole Sodium 40 mg BID IV 05/14/24 22:00 05/17/24 10:14 40 MG Phenol/Menthol 1 spr Q2HP PRN MT 05/14/24 17:30 Acetaminophen 650 mg Q6HP PRN NM 05/14/24 22:00 05/14/24 23:29 650 MG Lorazepam 1 mg Q6HP PRN IV 05/15/24 11:45 Saccharomyces Boulardii 250 mg DAILY PO 05/15/24 16:00 05/17/24 10:14 250 MG Cefepime HCl 50 ml @ 12.5 mls/hr Q8H IV 05/16/24 16:00 05/17/24 16:44 12.5 MLS/HR Vancomycin HCl 250 ml @ 200 mls/hr Q12H IV 05/17/24 20:00 05/17/24 20:08 200 MLS/HR laboratory and microbiology Laboratory Tests 05/17/24 05:57 Test 05/17/24 05:57 Range/Units Serum Glucose 127 H 74-106 mg/dL Microbiology Date/Time Source Procedure Growth Status 05/15/24 00:20 Stool Clostridium difficile Toxin Assay - Final Complete 05/13/24 23:19 Blood Blood Culture - Preliminary NO GROWTH AFTER 72 HOURS OF INCUBATION. Resulted Problem List/Assessment/Plan Problem List/Assessment/Plan AFEBRILE VSS ABD SOFT LESS TENDER BM + WBC DOWN ILEITIS RESOLVING CONTINUE CLOSE OBSERVATION ALLOW CLEAR LIQUIDS Plan discussed with: Patient, Other Dietary Evaluation Review Comments: 1) Advance pt diet when medically feasible 2) Continue current plan of care Expected Outcomes/Goals: F/U in 2-3 days CC Plasma Assessment Blood Product Administration S: 0400 LLOYD CORDOVA MD May 17, 2024 21:04
[2024-05-18] VITALS (8 sets, daily range): BP systolic 128–135; BP diastolic 69–83; PULSE 76–103; RESP 16–18; TEMP 97.9–98.3; O2SAT 94–98
[2024-05-18 06:23] LABS: Basophils # (auto) 0.1 10 ^3/uL (0-0.2); Eosinophils # (auto) 0.1 10 ^3/uL (0-0.8); Eosinophils % (auto) 0.8 % (0.0-7.0); Hemoglobin 8.3 g/dL (12.2-16.2); Lymphocytes # (auto) 1.4 10 ^3/uL (0.4-5.4)
[2024-05-18 06:27] LABS: Basophils % (auto) 0.5 % (0.0-2.0); Hematocrit 27.5 % (36.0-46.0); Lymphocytes % (auto) 8.4 % (10.0-50.0); Mean Corpuscular Hemoglobin 20.9 pg (28.0-32.0); Mean Corpuscular Hgb Conc. 30.3 g/dL (32.0-36.0); Mean Corpuscular Volume 68.9 fL (80.0-100.0); Monocytes # (auto) 1.2 10 ^3/uL (0-1.3); Monocytes % (auto) 7.3 % (0.0-12.0); Neutrophils # (auto) 14.1 10 ^3/uL (1.6-8.6); Platelet Count (auto) 233 10^3/uL (140-450); Red Blood Cells 3.99 10^6/uL (4.0-5.20)
[2024-05-18 06:40] LABS: Albumin 3.3 g/dL (3.2-4.8); Alkaline Phosphatase 88 U/L (46-116); Anion Gap 8 (5-15); Aspartate Aminotransferase < 8 U/L (13-40); BUN/Creatinine Ratio 18.6 (10.0-20.0); Blood Urea Nitrogen 8 mg/dL (9-23); Calcium 8.3 mg/dL (8.7-10.4); Carbon Dioxide 22 mmol/L (20-31); Chloride 109 mmol/L (98-107); Glucose 115 mg/dL (74-106); Potassium 2.8 mmol/L (3.5-5.1); Sodium 139 mmol/L (136-145)
[2024-05-18 06:42] LABS: Bilirubin, Total 0.5 mg/dL (0.2-1.0); Total Protein 6.5 g/dL (5.7-8.2)
[2024-05-18 06:43] LABS: Alanine Aminotransferase < 9 U/L (7-40)
[2024-05-18 07:25] LABS: Red Cell Distribution Width 34.2 % (11.8-14.3)
[2024-05-18 08:30] LABS: Platelet Estimate Adequate
[2024-05-18 08:32] LABS: Anisocytosis Marked; Hypochromia Moderate
[2024-05-18 08:33] LABS: Ovalocytes MODERATE
--- NOTE | 2024-05-18 11:38 | DVHPN2 ---
Reviewed: Care Plan, H&P Changes from previous H/P or p: No Changes General: Per HPI Musculoskeletal: No other, No neck pain, No shoulder pain, No arm pain, No back pain, No hand pain, No leg pain, No foot pain Skin: No Rash, No Lesions, No Jaundice, No Bruising, No Other Objective Vitals Vital Signs Date Time Temp Pulse Resp B/P (MAP) Pulse Ox O2 Delivery O2 Flow Rate FiO2 05/18/24 09:08 98.0 89 16 131/72 (91) 98 98.0 05/18/24 08:00 Room Air* 0 21 Intake/Output Intake and Output 05/18/24 07:00 Intake Total 2495 ml Balance 2495 ml Intake Oral 1500 ml IV Total 995 ml # Voids 7 # Bowel Movements 9 Medications Current Medications Medications Dose Ordered Sig/Nishant Route Start Time Stop Time Status Last Admin Dose Admin Vancomycin HCl 0 ml @ 0 mls/hr UD IV 05/13/24 23:30 Sodium Chloride 1,000 ml @ 60 mls/hr [id number] IV 05/13/24 23:30 05/18/24 04:55 60 MLS/HR Acetaminophen/ Hydrocodone Bitart 1 tab Q4HP PRN PO 05/13/24 23:30 05/14/24 02:20 1 TAB Ondansetron HCl 4 mg Q4HP PRN IV 05/13/24 23:30 Docusate Sodium 100 mg BIDPRN PRN PO 05/13/24 23:30 Acetaminophen 650 mg Q6HP PRN PO 05/13/24 23:30 05/17/24 22:18 650 MG Morphine Sulfate 2 mg Q4HPRN PRN IV 05/13/24 23:30 05/17/24 02:13 2 MG Nitroglycerin 0.4 mg Q5MINP PRN SL 05/14/24 01:00 Morphine Sulfate 2 mg Q30M PRN IV 05/14/24 01:00 Metronidazole 100 ml @ 100 mls/hr Q8HR IV 05/14/24 06:00 05/18/24 05:26 100 MLS/HR Pantoprazole Sodium 40 mg BID IV 05/14/24 22:00 05/18/24 10:08 40 MG Phenol/Menthol 1 spr Q2HP PRN MT 05/14/24 17:30 Acetaminophen 650 mg Q6HP PRN SC 05/14/24 22:00 05/14/24 23:29 650 MG Lorazepam 1 mg Q6HP PRN IV 05/15/24 11:45 Saccharomyces Boulardii 250 mg DAILY PO 05/15/24 16:00 05/18/24 10:08 250 MG Cefepime HCl 50 ml @ 12.5 mls/hr Q8H IV 05/16/24 16:00 05/18/24 08:57 12.5 MLS/HR Vancomycin HCl 250 ml @ 200 mls/hr Q12H IV 05/17/24 20:00 05/18/24 07:28 200 MLS/HR Laboratory Results Laboratory Tests 05/18/24 05:37 Chemistry Test 05/18/24 05:37 Albumin 3.3 g/dL (3.2-4.8) Calcium Level 8.3 mg/dL (8.7-10.4) L Total Protein 6.5 g/dL (5.7-8.2) LFT Test 05/18/24 05:37 Alanine Aminotransferase (ALT) < 9 U/L (7-40) Alkaline Phosphatase 88 U/L (46-116) Aspartate Amino Transferase (AST) < 8 U/L (13-40) L Total Bilirubin 0.5 mg/dL (0.2-1.0) Urinalysis Test 05/14/24 01:47 Urine Color Colorless (Yellow) Urine Clarity Clear (Clear) Urine pH 5.5 (5.0-9.0) Urine Specific [place] 1.049 (1.001-1.035) Urine Protein 1+ (Negative) H Urine Ketones Negative (Negative) Urine Blood 3+ /uL (Negative) H Urine Nitrite Negative (Negative) Urine Bilirubin Negative (Negative) Urine Urobilinogen Normal mg/dL (Negative) Urine Leukocyte Esterase 3+ /uL (Negative) Urine RBC 296 /hpf (0 - 4) Urine WBC 73 /hpf (0 - 5) Urine Squamous Epithelial Cells Few /hpf (<5) Urine Bacteria Few /hpf (None Seen) H Urine Hyaline Casts Mod /lpf (0 - 2) Urine Mucus Few (None Seen) Urine Glucose Normal mg/dL (Normal) Microbiology Microbiology Date/Time Source Procedure Growth Status 05/15/24 00:20 Stool Clostridium difficile Toxin Assay - Final Complete 05/13/24 23:19 Blood Blood Culture - Preliminary NO GROWTH AFTER 72 HOURS OF INCUBATION. Resulted Labs and/or images reviewed: Labs reviewed by me, Image(s) reviewed by me Assessment/Plan Assessment/Plan Sepsis with the elevated white 17176 secondary to urinary tract infection: Blood cultures negative Acute urinary tract infection urine cultures pending: Continue cefepime vancomycin Diarrhea: Shiga negative C diff negative Severe Iron-deficiency anemia with hemoglobin 4.5, improved 9.0 after 3 units of RBC transfusion hematology consult by Dr. 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 on 06/17/2024 Acute small bowel obstruction resolved WBC still elevated at 17 K Plan discussed with: Patient My Orders Orders - JOHNNIE HERNANDEZ MD Procedure Category Date Status Time Urine Bacterial KESHA 05/17/24 In Process Culture 12:36 Complete Blood Count LAB 05/19/24 Verified 05:00 Complete Blood Count LAB 05/20/24 Verified 05:00 Comprehensive LAB 05/19/24 Verified Metabolic Panel 05:00 Comprehensive LAB 05/20/24 Verified Metabolic Panel 05:00 Regular Diet DIET 05/17/24 Transmitted Dinner Potassium Effervesent PHA 05/18/24 Verified Tab (Klor-Con/Ef) 11:45 Date of Service: May 18, 2024 Billing Provider: JOHNNIE HERNANDEZ MD Common Visit Codes: [id number] INP/OBS CARE(HIGH) JOHNNIE HERNANDEZ MD May 18, 2024 11:38
[2024-05-18] MEDS: POTASSIUM EFFERVESENT TAB 25 MEQ PO ONE (13:35)
[2024-05-19] VITALS (8 sets, daily range): BP systolic 109–141; BP diastolic 48–78; PULSE 68–90; RESP 16–18; TEMP 97.9–99; O2SAT 93–100
[2024-05-19 06:46] LABS: Hemoglobin 8.4 g/dL (12.2-16.2); Mean Corpuscular Volume 68.4 fL (80.0-100.0)
[2024-05-19 06:53] LABS: Albumin 3.1 g/dL (3.2-4.8); Alkaline Phosphatase 78 U/L (46-116); Anion Gap 6 (5-15); Aspartate Aminotransferase 9 U/L (13-40); BUN/Creatinine Ratio 12.2 (10.0-20.0); Blood Urea Nitrogen 5 mg/dL (9-23); Calcium 8.2 mg/dL (8.7-10.4); Carbon Dioxide 26 mmol/L (20-31); Chloride 106 mmol/L (98-107); Glucose 120 mg/dL (74-106); Hematocrit 27.9 % (36.0-46.0); Mean Corpuscular Hemoglobin 20.5 pg (28.0-32.0); Platelet Count (auto) 250 10^3/uL (140-450); Red Blood Cells 4.07 10^6/uL (4.0-5.20); Red Cell Distribution Width 34.8 % (11.8-14.3); Sodium 138 mmol/L (136-145); White Blood Cell 15.1 10^3/uL (4.4-10.8)
[2024-05-19 06:54] LABS: Band Neutrophils % (manual) 0; Basophils % (manual) 0 (0.0-2.0); Bilirubin, Total 0.4 mg/dL (0.2-1.0); Blast Cells 0; Eosinophils % (manual) 0 (0-7); Metamyelocytes % 0; Myelocytes % 0; Promyelocytes % 0; Reactive Lymphocytes 0; Total Protein 6.2 g/dL (5.7-8.2)
[2024-05-19 06:58] LABS: Alanine Aminotransferase < 9 U/L (7-40)
[2024-05-19 07:48] LABS: Anisocytosis Moderate; Lymphocytes % (manual) 16 (10.0-50.0); Monocytes % (manual) 1 (0-12)
[2024-05-19 07:49] LABS: Hypochromia Moderate; Platelet Estimate Adequate
--- NOTE | 2024-05-19 13:24 | DVHPN2 ---
Reviewed: Care Plan, H&P Changes from previous H/P or p: No Changes General: Per HPI Musculoskeletal: No other, No neck pain, No shoulder pain, No arm pain, No back pain, No hand pain, No leg pain, No foot pain Skin: No Rash, No Lesions, No Jaundice, No Bruising, No Other Objective Vitals Vital Signs Date Time Temp Pulse Resp B/P (MAP) Pulse Ox O2 Delivery O2 Flow Rate FiO2 05/19/24 13:14 98.4 90 17 121/71 (88) 93 98.4 05/19/24 08:00 Room Air* 0 21 Intake/Output Intake and Output 05/19/24 07:00 Intake Total 2557.5 ml Balance 2557.5 ml Intake Oral 1600 ml IV Total 957.5 ml # Voids 8 # Bowel Movements 1 Medications Current Medications Medications Dose Ordered Sig/Nishant Route Start Time Stop Time Status Last Admin Dose Admin Vancomycin HCl 0 ml @ 0 mls/hr UD IV 05/13/24 23:30 Sodium Chloride 1,000 ml @ 60 mls/hr [id number] IV 05/13/24 23:30 05/18/24 04:55 60 MLS/HR Acetaminophen/ Hydrocodone Bitart 1 tab Q4HP PRN PO 05/13/24 23:30 05/14/24 02:20 1 TAB Ondansetron HCl 4 mg Q4HP PRN IV 05/13/24 23:30 Docusate Sodium 100 mg BIDPRN PRN PO 05/13/24 23:30 Acetaminophen 650 mg Q6HP PRN PO 05/13/24 23:30 05/17/24 22:18 650 MG Morphine Sulfate 2 mg Q4HPRN PRN IV 05/13/24 23:30 05/17/24 02:13 2 MG Nitroglycerin 0.4 mg Q5MINP PRN SL 05/14/24 01:00 Morphine Sulfate 2 mg Q30M PRN IV 05/14/24 01:00 Metronidazole 100 ml @ 100 mls/hr Q8HR IV 05/14/24 06:00 05/19/24 06:29 100 MLS/HR Pantoprazole Sodium 40 mg BID IV 05/14/24 22:00 05/19/24 09:31 40 MG Phenol/Menthol 1 spr Q2HP PRN MT 05/14/24 17:30 Acetaminophen 650 mg Q6HP PRN DC 05/14/24 22:00 05/14/24 23:29 650 MG Lorazepam 1 mg Q6HP PRN IV 05/15/24 11:45 Saccharomyces Boulardii 250 mg DAILY PO 05/15/24 16:00 05/19/24 09:31 250 MG Cefepime HCl 50 ml @ 12.5 mls/hr Q8H IV 05/16/24 16:00 05/19/24 09:31 12.5 MLS/HR Vancomycin HCl 200 ml @ 200 mls/hr Q8H IV 05/19/24 16:00 Laboratory Results Laboratory Tests 05/19/24 05:43 Chemistry Test 05/19/24 05:43 Albumin 3.1 g/dL (3.2-4.8) L Calcium Level 8.2 mg/dL (8.7-10.4) L Total Protein 6.2 g/dL (5.7-8.2) LFT Test 05/19/24 05:43 Alanine Aminotransferase (ALT) < 9 U/L (7-40) Alkaline Phosphatase 78 U/L (46-116) Aspartate Amino Transferase (AST) 9 U/L (13-40) L Total Bilirubin 0.4 mg/dL (0.2-1.0) Urinalysis Test 05/14/24 01:47 Urine Color Colorless (Yellow) Urine Clarity Clear (Clear) Urine pH 5.5 (5.0-9.0) Urine Specific [place] 1.049 (1.001-1.035) Urine Protein 1+ (Negative) H Urine Ketones Negative (Negative) Urine Blood 3+ /uL (Negative) H Urine Nitrite Negative (Negative) Urine Bilirubin Negative (Negative) Urine Urobilinogen Normal mg/dL (Negative) Urine Leukocyte Esterase 3+ /uL (Negative) Urine RBC 296 /hpf (0 - 4) Urine WBC 73 /hpf (0 - 5) Urine Squamous Epithelial Cells Few /hpf (<5) Urine Bacteria Few /hpf (None Seen) H Urine Hyaline Casts Mod /lpf (0 - 2) Urine Mucus Few (None Seen) Urine Glucose Normal mg/dL (Normal) Microbiology Microbiology Date/Time Source Procedure Growth Status 05/17/24 13:21 Voided Urine Urine Culture - Final Complete 05/15/24 00:20 Stool Clostridium difficile Toxin Assay - Final Complete 05/13/24 23:19 Blood Blood Culture - Final NO GROWTH AFTER 5 DAYS OF INCUBATION. Complete Labs and/or images reviewed: Labs reviewed by me, Image(s) reviewed by me Assessment/Plan Assessment/Plan Sepsis with the elevated white 19571 secondary to urinary tract infection: Blood cultures negative Acute urinary tract infection urine cultures pending: Continue cefepime vancomycin Diarrhea: Shiga negative C diff negative Severe Iron-deficiency anemia with hemoglobin 4.5, improved 9.0 after 3 units of RBC transfusion hematology consult by Dr. 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
[2024-05-19] MEDS: VANCOMYCIN 1GM/200ML PREMIX 200 ML IV SCH (15:51)
[2024-05-20 01:00] VITALS: BP 132/71; PULSE 72; RESP 17; TEMP 98; O2SAT 94
[2024-05-20 04:19] LABS: Base Excess -0.5 mmol/L (-2.0-3.0)
[2024-05-20 07:49] LABS: Basophils # (auto) 0.3 10 ^3/uL (0-0.2); Basophils % (auto) 1.6 % (0.0-2.0); Eosinophils # (auto) 0.2 10 ^3/uL (0-0.8); Mean Corpuscular Hemoglobin 20.5 pg (28.0-32.0)
[2024-05-20 07:50] LABS: Eosinophils % (auto) 1.5 % (0.0-7.0); Hematocrit 29.8 % (36.0-46.0); Hemoglobin 8.8 g/dL (12.2-16.2); Lymphocytes # (auto) 2.3 10 ^3/uL (0.4-5.4); Lymphocytes % (auto) 13.6 % (10.0-50.0); Mean Corpuscular Hgb Conc. 29.7 g/dL (32.0-36.0); Mean Corpuscular Volume 69.2 fL (80.0-100.0); Monocytes # (auto) 0.8 10 ^3/uL (0-1.3); Monocytes % (auto) 4.9 % (0.0-12.0); Neutrophils # (auto) 13.1 10 ^3/uL (1.6-8.6); Neutrophils % (auto) 78.4 % (37.0-80.0); Platelet Count (auto) 304 10^3/uL (140-450); Red Cell Distribution Width 35.5 % (11.8-14.3); White Blood Cell 16.7 10^3/uL (4.4-10.8)
[2024-05-20 07:58] LABS: Albumin 3.3 g/dL (3.2-4.8); Alkaline Phosphatase 76 U/L (46-116); Anion Gap 7 (5-15); Aspartate Aminotransferase 14 U/L (13-40); BUN/Creatinine Ratio 13.2 (10.0-20.0); Blood Urea Nitrogen 5 mg/dL (9-23); Calcium 8.5 mg/dL (8.7-10.4); Carbon Dioxide 25 mmol/L (20-31); Chloride 106 mmol/L (98-107); Glucose 116 mg/dL (74-106); Potassium 3.2 mmol/L (3.5-5.1); Sodium 138 mmol/L (136-145)
[2024-05-20 07:59] LABS: Bilirubin, Total 0.4 mg/dL (0.2-1.0); Total Protein 6.6 g/dL (5.7-8.2)
[2024-05-20 08:00] VITALS: PULSE 78; PULSE 83; RESP 16
[2024-05-20 08:03] LABS: Alanine Aminotransferase < 9 U/L (7-40)
[2024-05-20 08:59] VITALS: BP 130/73; PULSE 78; RESP 16; TEMP 98.2; O2SAT 96
[2024-05-20] MEDS ORDERED: FERR-7 PO (12:18)
[2024-05-20] MEDS ORDERED: LEVO500T91 PO (12:18)
[2024-05-20] MEDS ORDERED: METR-344 PO (12:18)
--- NOTE | 2024-05-20 12:24 | DVHDS2 ---
Discharge Summary Date of Admission May 14, 2024 at 00:49 Date of Discharge: May 20, 2024 Admitting Diagnosis Generalized weakness and abdominal pain Wounds: None Labs/Diagnostic Data: Laboratory Results Test 05/20/24 07:06 05/20/24 03:54 05/19/24 05:43 05/18/24 19:37 White Blood Count 16.7 10^3/uL (4.4-10.8) Red Blood Count 4.30 10^6/uL (4.0-5.20) Hemoglobin 8.8 g/dL (12.2-16.2) Hematocrit 29.8 % (36.0-46.0) Mean Corpuscular Volume 69.2 fL (80.0-100.0) Mean Corpuscular Hemoglobin 20.5 pg (28.0-32.0) Mean Corpuscular Hemoglobin Concent 29.7 g/dL (32.0-36.0) Red Cell Distribution Width 35.5 % (11.8-14.3) Platelet Count 304 10^3/uL (140-450) Mean Platelet Volume 9.0 fL (6.9-10.8) Neutrophils (%) (Auto) 78.4 % (37.0-80.0) Lymphocytes (%) (Auto) 13.6 % (10.0-50.0) Monocytes (%) (Auto) 4.9 % (0.0-12.0) Eosinophils (%) (Auto) 1.5 % (0.0-7.0) Basophils (%) (Auto) 1.6 % (0.0-2.0) Neutrophils # (Auto) 13.1 10 ^3/uL (1.6-8.6) Lymphocytes # (Auto) 2.3 10 ^3/uL (0.4-5.4) Monocytes # (Auto) 0.8 10 ^3/uL (0-1.3) Eosinophils # (Auto) 0.2 10 ^3/uL (0-0.8) Basophils # (Auto) 0.3 10 ^3/uL (0-0.2) Nucleated Red Blood Cells 0.0 % Sodium Level 138 mmol/L (136-145) Potassium Level 3.2 mmol/L (3.5-5.1) Chloride Level 106 mmol/L (98-107) Carbon Dioxide Level 25 mmol/L (20-31) Anion Gap 7 (5-15) Blood Urea Nitrogen 5 mg/dL (9-23) Creatinine 0.38 mg/dL (0.550-1.02) Glomerular Filtration Rate Calc 132 mL/min (>90) BUN/Creatinine Ratio 13.2 (10.0-20.0) Serum Glucose 116 mg/dL (74-106) Calcium Level 8.5 mg/dL (8.7-10.4) Total Bilirubin 0.4 mg/dL (0.2-1.0) Aspartate Amino Transferase (AST) 14 U/L (13-40) Alanine Aminotransferase (ALT) < 9 U/L (7-40) Alkaline Phosphatase 76 U/L (46-116) Total Protein 6.6 g/dL (5.7-8.2) Albumin 3.3 g/dL (3.2-4.8) Blood Gas Specimen Type Arterial Blood Gas Sample Site Left radial Blood Gas Patient Temperature 37.0 Arterial Blood Date Drawn [id number] Arterial Blood pH 7.479 (7.350-7.450) Arterial Blood Partial Pressure CO2 31.0 mmHg (32.0-45.0) Arterial Blood Partial Pressure O2 60.6 mmHg (83.0-108.0) Arterial Blood HCO3 22.5 mmol/L (21.0-28.0) Arterial Blood Oxygen Saturation 91.1 % (94.0-98.0) Arterial Blood Base Excess -0.5 mmol/L (-2.0-3.0) Arterial Blood Oxyhemoglobin 90.4 % (94.0-98.0) Arterial Blood Carboxyhemoglobin 0.5 % (0.5-1.5) Arterial Blood Methemoglobin 0.3 % (0.0-1.5) [place] Test Yes Blood Gas Total Hemoglobin 9.70 g/dL (12.0-16.0) Blood Gas Modality Room air FiO2 % 21.0 Differential Total Cells Counted 100.0 (100) Neutrophils % (Manual) 83 (37.0-80.0) Band Neutrophils % (Manual) 0 Lymphocytes % (Manual) 16 (10.0-50.0) Monocytes % (Manual) 1 (0-12) Eosinophils % (Manual) 0 (0-7) Basophils % (Manual) 0 (0.0-2.0) Metamyelocytes % (manual) 0 Myelocytes % (Manual) 0 Promyelocytes % (Manual) 0 Blast Cells % (Manual) 0 Reactive Lymphocytes 0 Platelet Estimate Adequate Hypochromasia (manual) Moderate Anisocytosis (manual) Moderate Microcytosis Moderate Schistocytes Few Vancomycin Level Trough 5.7 ug/mL (5-10) Test 05/18/24 05:37 05/15/24 00:20 05/14/24 07:21 05/14/24 01:47 Ovalocytes Moderate Stool for White Cells Rare Reticulocyte Count (auto) 2.45 % (0.5-1.5) Haptoglobin 155 mg/dL (33-278) Lactate Dehydrogenase 150 U/L (120-246) Urine Color Colorless (Yellow) Urine Clarity Clear (Clear) Urine pH 5.5 (5.0-9.0) Urine Specific [place] 1.049 (1.001-1.035) Urine Protein 1+ (Negative) Urine Ketones Negative (Negative) Urine Blood 3+ /uL (Negative) Urine Nitrite Negative (Negative) Urine Bilirubin Negative (Negative) Urine Urobilinogen Normal mg/dL (Negative) Urine Leukocyte Esterase 3+ /uL (Negative) Urine RBC 296 /hpf (0 - 4) Urine WBC 73 /hpf (0 - 5) Urine Squamous Epithelial Cells Few /hpf (<5) Urine Bacteria Few /hpf (None Seen) Urine Hyaline Casts Mod /lpf (0 - 2) Urine Mucus Few (None Seen) Urine Glucose Normal mg/dL (Normal) Test 05/14/24 01:07 05/13/24 22:35 Lactic Acid Level 2.7 mmol/L (0.4-2.0) Giant Platelets Few Polychromasia Slight Stomatocytes Few Hemoglobin A1c 4.7 % A1C (<5.7) Lipase 23 U/L (12-53) Beta HCG, Quantitative 0.8 mIU/mL (1.5-4.2) Other Laboratory Tests 05/20/24 07:06 Brief Hx & Hospital Course: 69-year-old female with a chronic history of fibroids iron-deficiency anemia came in for generalized weakness and abdominal pain and nausea found to be in sepsis secondary to urinary tract infection and colitis blood cultures negative patient was treated with the cefepime and vancomycin Shiga was negative C diff was negative patient has had colitis. Patient received 3 units of RBC transfusion for severe anemia of hemoglobin 4.5 and improved to 9.0 patient had moderate fibroids with menorrhagia causing anemia and she has an appointment with a spiral gear generator in three weeks for myomectomy. At the time of discharge patient is tolerating regular diet on room air no more nausea no abdominal pain [place] [address] [place] [address] . patient is requesting to go home Prescription for Levaquin Flagyl iron tablets transmitted to pharmacy Consults/Reason for consult GI Dr. Marvel Ronquillo Surgeon Dr. Shelbie Ronquillo Operations or Procedures CT abdomen pelvis without contrast Condition at Discharge: Fair Final Diagnosis/Problems List Sepsis with the elevated white 96421 secondary to urinary tract infection: Blood cultures negative Acute urinary tract infection urine cultures pending: Continue cefepime vancomycin Diarrhea: Shiga negative C diff negative Severe Iron-deficiency anemia with hemoglobin 4.5, improved 9.0 after 3 units of RBC transfusion hematology consult by Dr. Barrett appreciated advised outpatient follow up Moderate fibroids uterus with menorrhagia causing anemia, patient has appointment with her spiral gear generator on 06/17/2024 Acute small bowel obstruction resolved Discharge Disposition: Home Discharge Instruct/Medications Diet: Regular Activity: Light activity Follow Up/Referral: Use medications as prescribed Keep your appointment with your spiral gear generator for myomectomy Follow up with the GI Dr. Marvel Ronquillo in two weeks Medications: Levaquin Flagyl Iron tablets Transmitted to the pharmacy 39 (Time taken for discharge summary 39 minutes) Discharge Statement: "Patient was advised to return to the ER or call 911 if any headaches, dizziness, shortness of breath, chest pain, abdominal pain, bleeding, fevers, or worsening of medical condition. Patient was counseled about treatment plan, medications, possible side effects, patientverbalized understanding. All questions were answered to the best of my ability. This discharge took greater then 30 minutes in planning, reviewing documentation, counseling the patient, and discussing with other team members." ASSESSMENT ASSESSMENT Hospital Course Improved Assessment Sepsis with the elevated white 72829 secondary to urinary tract infection: Blood cultures negative Acute urinary tract infection urine cultures pending: Continue cefepime vancomycin Diarrhea: Shiga negative C diff negative Severe Iron-deficiency anemia with hemoglobin 4.5, improved 9.0 after 3 units of RBC transfusion hematology consult by Dr. Barrett appreciated advised outpatient follow up Moderate fibroids uterus with menorrhagia causing anemia, patient has appointment with her spiral gear generator on 06/17/2024 Acute small bowel obstruction resolved Date of Service: May 20, 2024 Billing Provider: JOHNNIE HERNANDEZ MD Common Visit Codes: [id number] DISCH DAY >30min JOHNNIE HERNANDEZ MD May 20, 2024 12:24
[2024-05-20 13:00] VITALS: BP 125/77; PULSE 94; RESP 18; TEMP 99.5; O2SAT 98
[2024-05-20 15:05] VITALS: BP 130/73; PULSE 78; RESP 16; TEMP 98.2; O2SAT 96
== END 2024-05-20 13:55 | disposition home or self-care (01) | DRG 720 ==
LOC: ER 22:11 → TELE 05-14 00:49 → TELE-WESTW 05-14 08:41
PROVIDERS: ADMIT Student in an Organized Health Care Education/Training Program; ATTEND Family Medicine
PROC: 30233N1 Transfusion of Nonautologous Red Blood Cells into Peripheral Vein, Percutaneous Approach (ICD-10-PCS; principal; 2024-05-14)
DX: A41.9 Sepsis, unspecified organism (principal); E87.20 Acidosis, unspecified; K56.609 Unspecified intestinal obstruction, unspecified as to partial versus complete obstruction; I95.89 Other hypotension; D50.9 Iron deficiency anemia, unspecified; E86.1 Hypovolemia; N39.0 Urinary tract infection, site not specified; D25.9 Leiomyoma of uterus, unspecified; Z83.3 Family history of diabetes mellitus; Z79.899 Other long term (current) drug therapy
CPT/HCPCS: 36415; 36600; 71045; 74250; 80053; 80202; 81001; 82565; 82805; 83010; 83036; 83605; 83615; 83690; 84702; 85007; 85025; 85027; 85045; 85048; 86850; 86900; 86901; 86920; 87040; 87045; 87081; 87086; 87177; 87427; 87493; G0378; J0692; J1885; J2470; J3480; J3490